=== PATIENT | female | born 1950 | race Caucasian/White ===

== ENCOUNTER 2023-07-10 14:26 | Outpatient (OUT) | payer MEDICARE, OTHER, SELFPAY ==
--- NOTE | 2023-07-10 | CONS_ITS ---
PROCEDURE DATE: ??07/10/2023 PROCEDURE:? Right sided T7 and T8 intercostal injection. PREOPERATIVE DIAGNOSIS:? Pain secondary to intercostal neuritis and myofascial dysfunction. SOLUTION USED FOR INJECTION:? 2 mL of 2% lidocaine, 2 mL of 0.25% Marcaine and Kenalog total of 10 mg, total of 5 mL and 1 mL was used for injection at each site. IMMEDIATE COMPLICATIONS:? None. PROCEDURE:? After informed consent was obtained from the patient, placed in the prone position.? Skin overlying the area was prepped with alcohol.? 25 gauge 1 ?? needle was inserted over the areas of the right T7 rib, approximately 3 cm from the midline.? Needle tip advanced until rib was encountered, at which point the needle was brought inferiorly, depositing 1 mL of solution.? The same procedure was repeated at the right T8 level.? Post-op needle was removed.? Patient reports a dramatic reduction in pain symptoms post procedurally.? No indication of intravascular or intraneural needle tip placement.? No evidence of post procedure pneumothorax. MTDD
== END 2023-07-10 14:27 | disposition home or self-care (01) ==
LOC: PM 14:26
PROVIDERS: PCP Internal Medicine; Visit Provider Anesthesiology Pain Medicine
DX: G58.8 Other specified mononeuropathies (principal); M79.10 Myalgia, unspecified site
CPT/HCPCS: 64420

== ENCOUNTER 2023-10-11 14:14 | Outpatient (OUT) | payer MEDICARE, OTHER, SELFPAY ==
--- NOTE | 2023-10-11 | CONS_ITS ---
CONSULTATION DATE: 10/11/2023 TO: Dr. Wheeler. HISTORY: Patient was seen today complaining of 1-5/10 pain in her shoulders bilaterally, more on the right side, described as a deep, aching pain with an occasional electrical sensation, which increases with activities such as standing, walking, performing lifting maneuvers, pushing/pulling maneuvers. Denies any change in bowel and bladder habits or new sensorimotor changes in the upper or lower extremities. EXAMINATION: Notable for patient having no clinical signs consistent with neuritis involving the right T7 and T8 intercostal nerves. She has no appreciable dysesthesia or hyperesthesia over this distribution. Patient does have a moderate amount of myofascial spasm involving the trapezius on the right side. IMPRESSION: Our impression is patient has pain from her intercostal neuritis at T7 and T8, appears to be stable. RECOMMENDATIONS: I recommend no further intervention for her original pain from myofascial spasm, and to return to our office on an as needed basis. As part of providing excellent, safe, comprehensive care, the following was completed at our patient's visit: 1. A medication reconciliation and review to ensure accurate knowledge of current/active medications, including asking our patients to inform us about any [id number] medications or herbal remedies/nutritional supplements/alternative remedies. 2. A review to specifically ensure our patients have had annual screening for: elevated body mass index (BMI, see intake chart for exact total), tobacco use, screening for depression, and screening for unhealthy alcohol use. When screening is concerning, patients are provided with education and the specific recommendation to discuss the concerning health issue and treatment options with their primary care provider. SOLO
== END 2023-10-11 14:15 | disposition home or self-care (01) ==
PROVIDERS: PCP Internal Medicine; Visit Provider Anesthesiology Pain Medicine
DX: G58.8 Other specified mononeuropathies (principal)
CPT/HCPCS: G0463

== ENCOUNTER 2023-10-26 09:24 | Outpatient (OUT) | payer MEDICARE, OTHER, SELFPAY ==
--- NOTE | 2023-10-26 09:09 | XR_ITS ---
The [address] [address] Patient Name: QUENTIN DEJESUS MRN: [id number] date: 1950 Sex: F Assigned Patient Location: LAB Current Patient Location: [facility] Accession/Order Number: [id number] Exam Date: 10/26/2023 11:00 Report Date: 10/26/2023 12:40 At the request of: KARMEN CHANEY Procedure: XR chest 2V EXAM: XR chest 2V HISTORY: Subacute Cough R05.2 COMPARISON: None. TECHNIQUE: PA and lateral views of the chest. FINDINGS: The cardiomediastinal silhouette is normal. No focal consolidation is identified. There is no pneumothorax. No pleural effusion is noted. The osseous structures are intact. XR/XR chest 2V IMPRESSION: No acute cardiopulmonary process. Electronically authenticated by: FELI GONZALES Date: 10/26/2023 12:40
== END 2023-10-26 09:25 | disposition home or self-care (01) ==
LOC: RAD 11-19 09:26
PROVIDERS: PCP Internal Medicine; Visit Provider Internal Medicine
DX: R05.2 Subacute cough (principal)
CPT/HCPCS: 71046

== ENCOUNTER 2024-01-07 10:00 | Outpatient (OUT) | payer MEDICARE, OTHER, SELFPAY ==
--- NOTE | 2024-01-07 10:03 | MM_ITS ---
Patient Name: QUENTIN DEJESUS MR#: [id number] : 1950 Exam Date: 01/07/2024 Ordering Doctor: DR Kamaljit Wheeler D.O. RADIOLOGY REPORT PROCEDURE: MM TOMOSYNTHESIS SCREENING BI COMPARISON: MG MAMM SCREEN 3D JULITA CAD, 12/21/2022. MG MAMM SCREEN 3D JULITA CAD, 09/16/2021. INDICATIONS: screening Calculator Name NCI Breast Cancer Risk Assessment Tool 5 Year Breast Cancer Risk 2.00% Lifetime Breast Cancer Risk 4.20% Personal Breast Cancer No Personal Ovarian Cancer No Treatments None Family Cancers Grandmother-paternal with lung cancer at age ~80. LOCATION: [facility] BREAST COMPOSITION: Extremely dense, which lowers the sensitivity of mammography. FINDINGS: DIAGNOSTIC CATEGORY 2--BENIGN FINDING. NO CHANGE FROM COMPARISON. Scattered benign-appearing calcifications are present. Scattered benign-appearing lymph nodes are present. RIGHT BREAST: No significant suspicious finding. LEFT BREAST: No significant suspicious finding. RECOMMENDATIONS: ROUTINE MAMMOGRAM AND CLINICAL EVALUATION IN 12 MONTHS. PLEASE NOTE: A NORMAL MAMMOGRAM DOES NOT EXCLUDE THE POSSIBILITY OF BREAST CANCER. A CLINICALLY SUSPICIOUS PALPABLE LUMP SHOULD BE BIOPSIED. Dictated by: Delon Holly MD on 01/07/2024 at 12:45 Approved by: Delon Holly MD on 01/07/2024 at 12:46
--- NOTE | 2024-01-07 10:03 | XR_ITS ---
[address] [address] Patient Name: QUENTIN DEJESUS MRN: [id number] date: 1950 Sex: F Assigned Patient Location: [facility] Current Patient Location: [facility] Accession/Order Number: [id number] Exam Date: 01/07/2024 10:35 Report Date: 01/07/2024 13:28 At the request of: KARMEN CHANEY Procedure: XR DEXA axial skeleton EXAMINATION: XR DEXA axial skeleton, 01/07/2024 10:35 AM EDT HISTORY: menopause Z78.0 COMPARISON: 2020, 2018, 2016 TECHNIQUE: Dual-energy X-ray absorptiometry (DEXA) bone density study performed for the axial skeleton. HISTORY: menopause Z78.0 FINDINGS: Bone mineral density AP spine L1-L4 measures 1.165 g/sq cm. T score -0.1. This is artifactually elevated secondary to proliferative spondylosis. Lowest bone mineral density right femoral trochanter measuring 0.56 g/sq cm. T score -2.2. WHO classification: Osteopenia. XR/XR DEXA axial skeleton IMPRESSION: Osteopenia. Moderate fracture risk Electronically authenticated by: MARNI EMERY Date: 01/07/2024 13:28
--- OUTSIDE RECORDS SUMMARY | 2024-01-07 10:06 | XMS_ITS | CCD ---
Author Name Unknown Address [address] [place] [address] Organization [facility] Care Team Providers Care [employer] Operations Coordinator Name Role Phone BLUM ., DR ARUN An Consulting Unavailable BLUM ., DR AURN An Admitting Unavailable BLUM ., DR ARUN An Attending Unavailable LIAM, DR PERAZA Primary Care Unavailable LIAM, DR PERAZA Primary Care Unavailable LAKSHMIPATHY ., NARENDNATALIAATH Admitting Jesenia vailable LAKSHMIPATHY ., NARENDNATALIAATH Attending Jesenia vailable LAKSHMIPATHY ., NARENDNATALIAATH Consulting Jesenia vailable LAKSHMIPATHY ., NARENDRANATH Admitting Jesenia vailable BALL, DR PERAZA Primary Care Unavailable LAKSHMIPATHY ., NARLOBO Attending Jesenia vailable LAKSHMIPATHY ., NARLOBO Consulting Jesenia vailable BLUM ., DR ARUN An Attending Unavailable VIDALES ., HILARY Consulting Unavailable BLUM ., DR ARUN An Admitting Unavailable LIAM, DR PERAZA Primary Care Unavailable BLUM ., DR ARUN An Admitting Unavailable BLUM ., DR ARUN An Attending Unavailable LIAM, DR PERAZA Primary Care Unavailable VIDALES ., HILARY Consulting Unavailable VIDALES ., HILARY Consulting Unavailable BLUM ., DR ARUN An Attending Unavailable BLUM ., DR ARUN An Admitting Unavailable LIAM, DR PERAZA Primary Care Unavailable LIAM, DR PERAZA Consulting Unavailable LIAM, DR PERAZA Primary Care Unavailable LIAM, DR PERAZA Admitting Unavailable LIAM, DR PERAZA Attending Unavailable RUPERT, DR MARNI Gomez Consulting Unavailable Liam Kamaljit Unavailable Allergies Allergy Classification Reported Allergen(s) Allergy Type Date of Onset Reaction(s) Facility (1 source) zonisamide Drug Allergy 3 [facility] Repository (5 sources) Diclofenac Drug Allergy Unknown [facility] Other (3 sources) patient allergy list reviewed by nurse or physicia Propensity to adverse reactions 9 Comment:Done [facility] Other (3 sources) Allergies Reconciled Propensity to adverse reactions Unknown [facility] Other Medications Current Medications Medication Drug Class(es) Dates Sig (Normalized) Sig (Original) escitalopram 20 mg oral tablet (5 sources) Serotonin Reuptake Inhibitor take 1 tablet by mouth once daily at bedtime Escitalopram Oxalate 20 MG take 1 tablet by mouth every evening at bedtime for 90 Active hydroCHLOROthiazide 25 mg oral tablet (5 sources) Thiazide Diuretic take 1 tablet by mouth every twenty-four hours hydroCHLOROthiazide 25 MG 1 tablet in the morning Orally Once a day for 90 days Active zolpidem tartrate 10 mg oral tablet (5 sources) gamma-Aminobu tyric Acid-ergic Agonist Start: 3 take 1 tablet by mouth once at bedtime as needed Zolpidem Tartrate 10 MG 1 tablet at bedtime as needed Orally q HS as needed for 30 days Apr, Active Problems Active Problems Problem Classification Problem Date Documented Date Episodic/Chronic Anxiety disorders (9 sources) Generalized anxiety disorder; Translations: [Generalized anxiety disorder] Chronic Essential hypertension (4 sources) Benign essential hypertension; Translations: [Essential hypertension, benign] Onset: 02-10-2015 Chronic Immunizations and screening for infectious disease (4 sources) Encounter for immunization; Translations: [Vaccination given] Episodic Menopausal disorders (4 sources) Primary ovarian failure; Translations: [Other primary ovarian failure] Onset: 02-22-2019 Chronic Miscellaneous mental health disorders (7 sources) Primary insomnia; Translations: [Primary insomnia] Onset: 02-10-2015 Chronic Mood disorders (4 sources) Dysthymic disorder; Translations: [Dysthymia] Onset: 02-07-2017 Chronic Other circulatory disease (1 source) Elevated blood-pressure reading, without diagnosis of hypertension Episodic Other diseases of veins and lymphatics (8 sources) Peripheral venous insufficiency; Translations: [Venous insufficiency (chronic) (peripheral)] Episodic Other diseases of veins and lymphatics (1 source) Venous insufficiency (chronic) (peripheral); Translations: [Venous insufficiency (chronic) (peripheral)] Episodic Other injuries and conditions due to external causes (4 sources) History of fall; Translations: [History of falling] Episodic Other nervous system disorders (4 sources) Other specified mononeuropathies; Translations: [OTHER SPECIFIED MONONEUROPATHIES] Onset: 02-22-2023 Chronic Other nutritional; endocrine; and metabolic disorders (4 sources) Hypercalcemia; Translations: [Hypercalcemia] Onset: 05-18-2018 Chronic Other upper respiratory disease (9 sources) Allergic rhinitis due to pollen; Translations: [Allergic rhinitis due to pollen] Chronic Other upper respiratory disease (4 sources) Allergic rhinitis; Translations: [Allergic rhinitis, unspecified] Chronic Other upper respiratory disease (1 source) Other seasonal allergic rhinitis; Translations: [Other seasonal allergic rhinitis] Onset: 02-10-2015 Chronic Other upper respiratory disease (3 sources) Seasonal allergic rhinitis; Translations: [Other seasonal allergic rhinitis] Onset: 02-10-2015 Chronic Other upper respiratory disease (1 source) Vasomotor rhinitis; Translations: [Vasomotor rhinitis] Chronic Other upper respiratory disease (1 source) Vasomotor rhinitis Chronic Residual codes; unclassified (18 sources) Obstructive sleep apnea syndrome; Translations: [Obstructive sleep apnea (adult) (pediatric)] Onset: 02-19-2019 Chronic Residual codes; unclassified (1 source) Obstructive sleep apnea (adult) (pediatric) Chronic Residual codes; unclassified (1 source) Family history of malignant neoplasm of trachea, bronchus and lung; Translations: [FAM HX MALIG NEOPLSM TRACH BRON LNG] Onset: 12-25-2022 Episodic Residual codes; unclassified (2 sources) Asymptomatic menopausal state; Translations: [Asymptomatic menopausal state] Episodic Residual codes; unclassified (1 source) Tobacco use; Translations: [Tobacco use] Episodic Residual codes; unclassified (3 sources) Tobacco user; Translations: [Tobacco use] Episodic Residual codes; unclassified (3 sources) Postmenopausal state; Translations: [Asymptomatic menopausal state] Episodic Screening and history of mental health and substance abuse codes (1 source) Encounter for screening for depression; Translations: [Encounter for screening for depression] Episodic Spondylosis; intervertebral disc disorders; other back problems (11 sources) Spondylosis without myelopathy or radiculopathy, thoracic region; Translations: [Other intervertebral disc degeneration, thoracic region] Onset: 07-18-2022 Chronic Unclassified (1 source) Other screening mammogram; Translations: [Other screening mammogram] Onset: 02-10-2015 Unclassified (1 source) Need for prophylactic vaccination against Streptococcus pneumoniae (pneumococcus); Translations: [Need for prophylactic vaccination against Streptococcus pneumoniae (pneumococcus)] Onset: 08-25-2016 Viral infection (4 sources) COVID-19; Translations: [Disease caused by 2019-nCoV] Past or Other Problems Problem Classification Problem Date Documented Da te Episodic/Chronic Malaise and fatigue (4 sources) Malaise and fatigue; Translations: [Other malaise and fatigue] Onset: 07-31-2016 Episodic Other bone disease and musculoskeletal deformities (1 source) Other specified disorders of bone density and structure, unspecified site; Translations: [Oth disrd of bone density and structure, unspecified site] Onset: 01-15-2018 Episodic Other bone disease and musculoskeletal deformities (3 sources) Bone density finding; Translations: [Other specified disorders of bone density and structure, unspecified site] Onset: 01-15-2018 Episodic Other connective tissue disease (5 sources) Other muscle spasm; Translations: [OTHER MUSCLE SPASM] Onset: 07-18-2022 Episodic Other connective tissue disease (4 sources) Fibromyalgia; Translations: [Fibromyalgia] Onset: 01-15-2018 Episodic Other screening for suspected conditions (not mental disorders or infectious disease) (10 sources) Encounter for screening mammogram for malignant neoplasm of breast; Translations: [Encounter for screening for malignant neoplasm of colon] Onset: 04-22-2017 Resolved: 07-09-2020 Episodic Residual codes; unclassified (4 sources) Requires influenza virus vaccination; Translations: [Need for prophylactic vaccination and inoculation, Influenza] Onset: 08-01-2017 Episodic Residual codes; unclassified (4 sources) Insomnia; Translations: [Insomnia, unspecified] Onset: 02-10-2015 Episodic Residual codes; unclassified (3 sources) Sleep disorder; Translations: [Persistent disorder of initiating or maintaining sleep] Onset: 02-10-2015 Episodic Spondylosis; intervertebral disc disorders; other back problems (13 sources) Muscle spasm of back; Translations: [Neck pain] Onset: 02-19-2019 Episodic Unclassified (1 source) Subacute cough R05.2 Results Test Name Value Interpretation Reference Range Facil ity MG MAMM SCREEN 3D JULITA CADon 12-21-2022 MG MAMM SCREEN 3D JULITA CAD Patient: QUENTIN DEJESUS Exam Date: 12/21/2022 : 1950 Gender:F Ordering : DR KAMALJIT CHANEY D.O. Admission #: [id number] Family : Order #: [id number] CLICK HERE TO VIEW EXAM RADIOLOGY REPORT PROCEDURE: MAMMOGRAM SCREENING 3D BILATERAL CAD COMPARISON: MG MAMM SCREEN JULITA W CAD, 07/30/2020. MG MAMM SCREEN 3D JULITA CAD, 09/16/2021. INDICATIONS: Screening mammography Calculator Name NCI Breast Cancer Risk Assessment Tool 5 Year Breast Cancer Risk 2.00% Lifetime Breast Cancer Risk 4.50% Personal Breast Cancer No Personal Ovarian Cancer No Treatments None Family Cancers Grandmother-paternal with lung cancer at age 80. LOCATION: [facility] BREAST COMPOSITION: Extremely dense, which lowers the sensitivity of mammography. FINDINGS: DIAGNOSTIC CATEGORY 2--BENIGN FINDING. NO CHANGE FROM COMPARISON. Scattered benign-appearing calcifications are present. Scattered benign-appearing lymph nodes are present. RIGHT BREAST: No significant suspicious finding. LEFT BREAST: No significant suspicious finding. RECOMMENDATIONS: ROUTINE MAMMOGRAM AND CLINICAL EVALUATION IN 12 MONTHS. PLEASE NOTE: A NORMAL MAMMOGRAM DOES NOT EXCLUDE THE POSSIBILITY OF BREAST CANCER. A CLINICALLY SUSPICIOUS PALPABLE LUMP SHOULD BE BIOPSIED. Dictated by: Marni Holly MD on 12/22/2022 at 12:33 Approved by: Marni Holly MD on 12/22/2022 at 12:36 Normal [facility] Vital Signs Date Time Vital Sign Value Performing Clinician Facility 10-25-2023 08:30-0500 Body height 167.64 cm Kamaljit Chaney Other [facility] Other 10-25-2023 08:30-0500 Body mass index (BMI) [Ratio] 22.56 kg/m2 Kamaljit [facility] Other [facility] Other 10-25-2023 08:30-0500 Body weight 63.41 kg Kamaljit [facility] Other [facility] Other 10-25-2023 08:30-0500 Diastolic blood pressure 80 mm[Hg] Kamaljit [facility] Other [facility] Other 10-25-2023 08:30-0500 Respiratory rate 12 /min Kamaljit Ball Other [facility] Other 10-25-2023 08:30-0500 Systolic blood pressure 149 mm[Hg] Kamaljit Ball Other [facility] Other 05-01-2023 09:30-0400 Body height 167.64 cm Kamaljit Ball Other [facility] Other 05-01-2023 09:30-0400 Body mass index (BMI) [Ratio] 22.53 kg/m2 Kamaljit Ball Other [facility] Other 05-01-2023 09:30-0400 Body weight 63.32 kg Kamaljit Ball Other [facility] Other 05-01-2023 09:30-0400 Diastolic blood pressure 72 mm[Hg] Kamaljit Ball Other [facility] Other 05-01-2023 09:30-0400 Respiratory rate 12 /min Kamaljit Ball Other [facility] Other 05-01-2023 09:30-0400 Systolic blood pressure 135 mm[Hg] Kamaljit Ball Other [facility] Other Encounters Encounter Date Encounter Type Care Provider Facility Start: 10-25-2023 End: 10-25-2023 ambulatory Kamaljit Ball Other [facility] Other Start: 10-25-2023 Office outpatient visit 15 minutes Kamaljit Chaney [facility] Start: 08-17-2023 End: 08-17-2023 ambulatory Kamaljit Ball Other [facility] Other Start: 08-17-2023 Telephone encounter Kamaljit [facility] Start: 07-20-2023 End: 07-20-2023 ambulatory Kamaljit Ball Other [facility] Other Start: 07-20-2023 Nursing evaluation o f patient and report Kamaljit Chaney [facility] Start: 05-18-2023 End: 05-18-2023 ambulatory Kamaljit Chaney Other [facility] Other Start: 05-18-2023 Telephone encounter Kamaljit Chaney [facility] Start: 05-01-2023 End: 05-01-2023 ambulatory Kamaljit Chaney Other [facility] Other Start: 05-01-2023 Patient encounter procedure Kamaljit Chaney [facility] Start: 02-22-2023 End: 02-23-[address] KAMALJIT CHANEY Facility:[facility] Start: 01-18-2023 End: 01-19-2023 ambulatory YOJANA SHIRLEY . Facility:[facility] Start: 12-21-2022 End: 12-22-[address] KAMALJIT CHANEY Facility:[facility] Start: 10-19-2022 End: [address] ARUN BLUM . Facility:[facility] Start: 07-13-2022 End: 07-14-2022 ambulatory HILARY VIDALES . Facility:[facility] Start: 05-31-2022 End: 06-01-[address] ARUN BLUM . Facility:[facility] Start: 03-09-2022 End: 03-10-[address] ARUN BLUM . Facility:[facility] Start: 07-08-2021 Adult health examination Kamaljit Chaney Other [facility] Other Procedures Date Procedure Procedure Detail Performing Clinician Start: 12-09-2018 Screening for malign ant neoplasm of colon Kamaljit Chaney Other Start: 02-10-2015 Screening mammography B encindy Chaney Other Depression screening Rosalino Chaney Other Screening for malign ant neoplasm of breast Kamaljit Chaney Other Immunizations Immunization Date Immunization Notes Care Provider Fa cilidonald 07-20-2023 influenza, high dose seasonal, preservative-free Kamaljit Chaney Other [facility] Other 05-14-2023 zoster vaccine recombinant Kamaljit Chaney Other [facility] Other 10-25-2022 COVID-19 Pfizer (bivalent) Kamaljit Chaney Other [facility] Other 07-12-2022 influenza virus vaccine, split virus (incl. purified surface antigen) Kamaljit Chaney Other [facility] Other 07-12-2022 influenza, high dose seasonal, preservative-free Kamaljit Chaney Other [facility] Other 02-06-2022 COVID-19 Pfizer Kamaljit Parnell l Other [facility] Other 07-20-2021 COVID-19 Vaccine Pfi zer - Documentation Purposes Only Kamaljit Chaney Other [facility] Other 07-08-2021 influenza virus vaccine, split virus (incl. purified surface antigen) Kamaljit Chaney Other [facility] Other 12-14-2020 COVID-19 Vaccine Pfi zer - Documentation Purposes Only Kamaljit Chaney Other [facility] Other 11-23-2020 COVID-19 Vaccine Pfi zer - Documentation Purposes Only Kamaljit Chaney Other [facility] Other 07-09-2020 influenza virus vaccine, split virus (incl. purified surface antigen) Kamaljit Chaney Other [facility] Other 08-05-2019 influenza virus vaccine, split virus (incl. purified surface antigen) Kamaljit Chaney Other [facility] Other 08-06-2018 influenza virus vaccine, split virus (incl. purified surface antigen) Kamaljit Chaney Other [facility] Other 08-01-2017 influenza virus vaccine, split virus (incl. purified surface antigen) Kamaljit Chaney Other [facility] Other 09-11-2016 influenza virus vaccine, split virus (incl. purified surface antigen) Kamaljit Chaney Other [facility] Other 08-25-2016 pneumococcal conjuga te vaccine, 13 valent Kamaljit Chaney Other [facility] Other 08-25-2016 pneumococcal Conjuga te, unspecified formulation; Translations: [Need for prophylactic vaccination against Streptococcus pneumoniae (pneumococcus)] Kamaljit Liam Other [facility] Other 08-19-2015 tetanus and diphther ia toxoids, adsorbed, preservative free, for adult use (5 Lf of tetanus toxoid and 2 Lf of diphtheria toxoid) Kamaljit Liam Other [facility] Other 02-19-2015 pneumococcal polysaccharide vaccine, 23 valent Kamaljit Chaney Other [facility] Other 07-30-2014 tetanus and diphther ia toxoids, adsorbed, preservative free, for adult use (5 Lf of tetanus toxoid and 2 Lf of diphtheria toxoid) Kamaljit Chaney Other [facility] Other 08-21-2013 tetanus and diphther ia toxoids, adsorbed, preservative free, for adult use (5 Lf of tetanus toxoid and 2 Lf of diphtheria toxoid) Kamaljit Chaney Other [facility] Other Payers Date Payer Category Payer Medicare [id number] 1961 Unknown [id number] 1950 Unknown [id number] 2.16.84 [id number] 1950 Unknown [id number] 2.16.84 [id number] 1950 Unknown [id number] 2.16.84 [id number] 1950 Unknown [id number] 2.16.84 [id number] 1950 Unknown [id number] 2.16.84 [id number] 1950 Unknown [id number] 2.16.84 [id number] 1950 Unknown [id number] 2.16.84 [id number] Social History Date Type Detail Facility Sex Assigned At [facility] Other Clinical Notes 03-09-2022 to 10-25-2023 Note Date & Type Note Facility 10-25-2023 Evaluation note Encounter Date Diagnosis Assessment Notes Oct, Elevated BP without diagnosis of hypertension (ICD-10 - R03.0) This patient is instructed to consume a healthy, low-fat, low-salt diet. They are also encouraged to continue exercise to achieve/mainta in a normal BMI. Patient is instructed on home BP measurements: - rest for 5 minutes w/o talking- positioned w/ feet on floor and arm supported- average best 2/3 readings w/ goal < 135/85 Oct, Vasomotor rhinitis (ICD-10 - J30.0) Intolerant to Flonase. Use saline rinses regularly Sudafed and expectorant daily Oct, Subacute cough (ICD-10 - R05.2) Instructed to use Robitussin or Mucinex for cough, saline or Flonase NS for congestion, Tylenol for pain and fever. Instructed on treatment of rhinitis and GERD. CXR [facility] Other 07-11-2023 Evaluation note* Encounter Date Diagnosis Assessment Notes Treatment Notes Treatment Clinical Notes Apr, Medicare annual wellness visit, subsequent (ICD-10 - Z00.00) Personalized health advice was given to the beneficiary including a written plan for screenings discussed and provided. Advanced care planning reviewed and/or information given as requested. Additional counseling was provided here today in regards to, [ ]. The above visit was performed by [ ], under direct supervision of [ ]. Document reviewed and amended by provider signed below. Apr, SHITAL (obstructive sleep apnea) (ICD-10 - G47.33) This patient is aware of the benefits associated with SHITAL: With continued use, the patient reduces the risk for RI, CVA, HTN, cardiac dysrhythmias and sudden cardiac deaths.The patient is also aware of the association between SHITAL and morning headaches, daytime somnolence, fatigue and obesity, which also has been improved with continued use.The patient is compliant with treatment, wearing the equipment every night for greater than 4 hours.The patient is instructed to continue use of the CPAP for SHITAL treatment. Not wearing recently due to dental surgery Apr, Primary insomnia (ICD-10 - F51.01) Instructed on proper sleep routine. Avoid phone, computer, TV and exercise prior to bedtime Use Zolpidem on occasion Apr, Menopause (ICD-10 - Z78.0) Healthy diet, exercise Ca and Vit D supplements. Apr, Screening mammogram for breast cancer (ICD-10 - Z12.31) Monthly SBE and yearly mammogram Apr, Screening for colon cancer (ICD-10 - Z12.11) Due for [facility], order sent [facility] Other 03-30-2023 NoteCONSULTATION PROCEDURE DATE: 01/18/2023 PROCEDURE: Right T7 and T8 intercostal nerve injection performed in the office. 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 SOLUTION USED FOR INJECTION: 2 mL of 2% lidocaine, 2 mL of 0.2% Marcaine, Kenalog 10 mg, a total of 5 mL and 0.5 to 1 mL used for injection at each site. IMMEDIATE COMPLICATIONS: None. PROCEDURE: After informed consent was obtained from the patient, placed in the left lateral decubitus position. Skin overlying the area was prepped with alcohol. A 25 gauge, 1.5 inch needle inserted over the rib on the right side at T7. The rib was encountered. The needle tip was walked off inferiorly, depositing 1 mL of solution. The same procedure was performed in a similar fashion at the T8 level. Throughout the procedure, there was no indication of intraneural or intravascular or intrapleural needle tip placement or injection. There was no evidence of post procedural pneumothorax noted on examination. She reports at least 80% reduction of pain symptoms during the immediate post procedural period.[facility] [id number] NoteCONSULTATION CONSULTATION DATE: 01/18/2023 TO: Kamaljit Chaney D.O. CHIEF COMPLAINT: Includes severe right sided rib pain, flank pain and chest pain. HISTORY: She describes the pain as being 5-7/10 pain, sharp in character, increased with activities such as deep breathing, coughing, sneezing is also uncomfortable. Touching the area is also quite painful, and she also describes a burning sensation in this area, which radiates to the anterior chest and anterior abdominal area. EXAM: Her examination is notable for patient having dysesthesia and hyperesthesia along the distribution of the right intercostal nerve at T7 and T8. RECOMMENDATIONS: I have recommended she start Zonegran 25 mg at h.s., proceed with a right T7 and T8 intercostal nerve injection. I have increased the baclofen to 10 mg pills, half a pill in the morning, half a pill in the afternoon and one pill at bedtime. I have gone over the details of the procedure with the patient. All of her questions were answered. She agrees to proceed with the outlined plan.[facility] [id number] NoteCONSULTATION CONSULTATION DATE: 10/19/2022 HISTORY OF PRESENT ILLNESS: This is a very pleasant, 71-year-old female returning to the clinic for a three month follow up for chronic right trapezius/scapular pain and spasms and right cervical spasms. She was last seen on 07/13/2022 which, at that time, she received cervical trapezius trigger point injection. The patient received moderate relief but was not long lasting. She finds relief mainly with Epsom salt soaks. Medications include baclofen 10 mg q.h.s., Lexapro, melatonin and Tylenol. Activities that aggravate her pain are sitting too long and twisting motion. She does use heat application which seems to lessen the spasms. She denies any vasomotor changes. Patient's REVIEW OF SYSTEMS / PAST MEDICAL HISTORY / ALLERGIES and IMAGES have been reviewed and noted in the chart. PHYSICAL EXAM: VITAL SIGNS: Blood pressure is 130/78. Heart rate is 70. Temperature is 96.9. She is 5'6 , weighs 63 kg. GENERAL APPEARANCE: Pleasant, appropriate, in no acute distress. FOCUSED EXAM - NECK: Range of motion is functional in lateral rotation and flexion/extension. It is guarded somewhat with right lateral rotation. No spinal axial pain upon compression along the cervical facets. Right cervical trapezius muscle is spasmodic and compression reproduces patient's pain symptomatology. BACK: Thoracic trapezius muscles to the right along T5 distribution, posterior right scapula are tender to palpation. Deep compression reproduces pain symptomatology and is spasmodic. Range of motion of the back is functional in lateral rotation and flexion/extension. MUSCULOSKELETAL: Bilateral upper and lower extremities motor of 4/5. Musculature is with good tone. NEUROLOGICAL: Radicular sensory is intact. Negative polyneuropathy. DIAGNOSIS: Cervical trapezius spasm to the right and right thoracic trapezius spasms. PLAN: Prescription was given for compounded Buderer cream with gabapentin. I did recommend her to get a professional massage with a therapist. She is to continue her other home modalities including heat and Epsom salt. We will see her in three months' time, unless otherwise indicated. Patient is in agreement. [facility] [id number] NoteCONSULTATION CONSULTATION DATE: 07/13/2022 HISTORY OF PRESENT ILLNESS: This is a very pleasant and active, 71-year-old female returning to the clinic for complaints of right neck trapezius pain. She was last seen in the clinic on 05/31/2022 which, at that time, she received trapezius thoracic trigger point injection which she reported was very helpful. She is very active and has increased the use of her right arm with certain activities. She feels that she has a possible muscle spasm that gives her tightness and electrical shooting pain from the posterior part of her right neck to her arm. It affects her driving and turning her head to the right. It decreases the range of motion of her arm because of the pain. Lifting, reaching, physical activity and lateral rotation aggravate her pain. Medications include Epsom salt baths, a menthol freeze spray, baclofen 10 mg q.h.s., Lexapro and a multivitamin regimen. Patient's REVIEW OF SYSTEMS / PAST MEDICAL HISTORY / ALLERGIES and IMAGES have been reviewed and they are noted on the chart. PHYSICAL EXAM: VITAL SIGNS: Blood pressure 155/89, heart rate is 71. Temperature is 97.1. She is 5'6 and weighs 63.6 kg. GENERAL IMPRESSION: Pleasant, appropriate, no acute distress. FOCUSED EXAM - NECK: Range of motion is slightly guarded in right lateral rotation. Flexion/extension is intact. Right cervical trapezius muscle with trigger point identified. Compression along that area reproduces the patient's pain symptomatology with positive jump response. MUSCULOSKELETAL: Motor is intact, 4/5 bilaterally to upper extremities. Good muscle tone. No vasomotor weakness noted. NEUROLOGICAL: Patient is cognitively intact. Negative polyneuropathy. +2 brachioradialis bilaterally. DIAGNOSIS: Right cervical trapezius spasm, thoracic spondylosis and thoracic degenerative disc. PLAN: Patient will receive a right cervical trigger point injection in the office today, which she does consent to. Patient has complaint of slight somnolence with the 10 mg dose of baclofen in the morning after taking it. She was instructed to break it in half or to divide it into separate administrations of 5 mg. Education is given on using Vicks VapoRub and heat application to the cervical trapezius site. We will see the patient in three months' time unless otherwise indicated.[facility] [id number] Note CONSULTATION PROCEDURE DATE: 07/13/2022 PREOPERATIVE DIAGNOSIS: Right cervical trapezius spasm. POSTOPERATIVE DIAGNOSIS: Right cervical trapezius spasm. PROCEDURE: Right cervical trapezius trigger point injection x1. Subsequent to obtaining informed consent, the patient was placed in an upright sitting neutral position. Alcohol prep was used to sterilize the site. 0.125% Marcaine with 40 mg of Kenalog in a 25 gauge needle, total volume of 3 mL was placed to rest inside the trigger point. Negative heme. Medication injected in a slow fan-like pattern. Patient tolerated procedure well and will be followed up in the office.[facility] [id number] NoteCONSULTATION CONSULTATION DATE: 05/31/2022 This is a very pleasant and active 71-year-old female returning to the clinic for increased right trapezius pain. She was last seen on 03/09/2022 and that was her follow-up appointment for her thoracic RFAs of T2, T3 and T4, T5. She continues to have 100% relief on the left but is feeling increased pain on the right. It is aggravated by reaching, vacuuming the house, lifting and ADLs. She has been using menthol heat rubs, Epsom salt baths, heat and stretches with no relief. When she raises her arm up or deeply massages her left scapular area, the pain decreases. Her medications include Baclofen 10 mg q.h.s., Lexapro 10 mg q. day, Osteo Bi-Flex and magnesium. She does use Aleve p.r.n. On her last appointment date, she received a right trigger point injection. He trapezius gave her 50%b relief. REVIEW OF SYSTEMS, PAST MEDICAL HISTORY, ALLERGIES AND IMAGES: Have been reviewed and noted in the chart. PHYSICAL EXAM: VITAL SIGNS: Blood pressure 146-80, heart rate is 86, temperature is 97.8. Height is 5'6 , weighs 64 kg. GENERAL APPEARANCE: Pleasant, appropriate, uncomfortable sitting in the chair. FOCUSED EXAM: NECK: Range of motion is functional, lateral rotation, flexion and extension. BACK: Range of motion is functional, lateral rotation, flexion and extension. THORACIC: No reproduction of spinoaxial pain. Upon compression of the thoracic facets at the levels of her ablation which were T2, T3 and T4, T5. Two trigger points were identified along her right trapezius, one subscapular and once just medial to her T3, vertebrae. Compression of these two areas reproduces the patient's symptomatology. MUSCULOSKELETAL: Motor is intact, upper and lower extremities, 4 out of 5. Slight muscle atrophy to bilateral lower extremities. NEUROLOGICAL: Radicular sensory is intact. Plus 2 bilateral brachioradialis reflexes. Negative polyneuropathy. DIAGNOSIS: Right trapezius spasm, spondylosis, thoracic spondylosis and thoracic degenerative disk. PLAN: The patient will receive right trapezius trigger point injections in two locations. I encouraged the patient to continue with her magnesium, heat rubs, stretches and I recommended a professional massage. The patient agrees with the plan of care and will be followed up in two months' time unless otherwise indicated.[facility] [id number] NoteCONSULTATION PROCEDURE NOTE: 05/31/2022 PRE AND POSTOPERATIVE DIAGNOSIS: Right trapezius spasms PROCEDURE: Right trapezius trigger point. Subsequent to obtaining informed consent, the patient was placed in the upright standing forward flexion position. Alcohol prep was used to sterilize the site. 25-gauge needle with 0.125% Marcaine and 40 mg of Kenalog was divided into two locations. The needle was placed to rest inside the trigger point, negative heme. Medication was injected in the fan-like position. The patient tolerated the procedure well with no overt complications. She will be followed up in the office.[facility] [id number] NoteThe [place], [place] NAME: QUETNIN DEJESUS DATE OF : MEDICAL REC#: [id number] WEB ANALYST: [address] [facility]: 03/09/2022 10:47:00 TRUER PINION AND WHEEL DATE: 03/10/2022 16:00 DICTATING PHYSICIAN: HILARY VIDALES DICTATION DATE: 03/09/2022 11:00 CONSULTATION CONSULTATION DATE: 03/09/2022 This is a very pleasant 71-year-old female returning to the clinic status post bilateral RFA with T2, T3 and T4 and T5 which was completed on 02/07/2022. The patient has received 100% relief to the left side and reporting 0 to the right. She is describing a tightness and a dull ache which she thinks is muscle related. She has been using Epsom salt bath as well as a menthol rub. Activities such as evening hours and sitting prolonged periods of time aggravate her pain. The use of heat, Voltaren gel and sleep decrease her pain. Current medications include Flexeril 10 mg q.h.s., Lexapro, Vitamin D and fish oil. The patient is reporting that the Flexeril is giving her a somewhat hangover type feeling which is unpleasant for her. The patient denies any new radicular pain or vasomotor changes. REVIEW OF SYSTEMS, PAST MEDICAL HISTORY, ALLERGIES AND IMAGES: Have been reviewed and noted in the chart. PHYSICAL EXAM: VITAL SIGNS: Blood pressure 153/80, heart rate is 68, temperature is 97.7. Height is 5'6 , weighs 63.3 kg. GENERAL APPEARANCE: Pleasant and appropriate, no acute distress. FOCUSED EXAM: BACK: Reproduction of the patient's pain symptomatology to compression to right thoracic trapezius with the trigger point identified in two separate areas along T4 and T5. No spinoaxial pain to facet compression. MUSCULOSKELETAL: Motor is intact to upper extremities bilaterally. NEUROLOGICAL: Negative polyneuropathy, no radicular pain. DIAGNOSIS: Thoracic trapezius spasm, thoracic spondylosis, thoracic degenerative disk disease. PLAN: The patient will receive two right-sided trapezius trigger point injections in the office, which she consents to. We will change her muscle relaxer to Backofen 10 mg q.h.s. The patient is to continue with her exercises, stretches, heat rub and vitamin regimen. We will see the patient in three months' time unless otherwise indicated. Electronically Authenticated and Edited by: Hilary Vidales CNP on 03/13/2022 02:59 PM EDT IF Signed and Approved by: HILARY VIDALES . 03/13/2022 14:59:00[facility]05-19-2022 NoteCONSULTATION CONSULTATION DATE: 03/09/2022 PREOPERATIVE DIAGNOSIS: Bilateral thoracic trapezius spasms. POSTOPERATIVE DIAGNOSIS: Bilateral thoracic trapezius spasms. PROCEDURE: Right thoracic trigger point injection. Subsequent to obtaining informed consent, the patient was placed in the upright standing and forward flexion position. Alcohol prep was used to sterilize the site. A 25 gauge needle with 0.125% Marcaine and 40 mg of Kenalog was used to inject into two separate sites on the right. Needle was placed to rest inside the trigger points. Negative heme. Medication was injected in a fan-like pattern. Patient tolerated the procedure well and without any overt complications. Patient will be followed up in the clinic. IFC Signed and Approved by: HILARY VIDALES . 03/23/2022 16:01:00[facility] noteNo InformationNort [place] Other History general Narrative - Reported* Type Description Date Medical History Obstructive sleep apnea Medical History Primary insomnia Medical History ZULEYKA (generalized anxiety disorde r) Medical History Cervical spondylosis with radicu lopathy Medical History Chronic venous insufficiency Medical History Seasonal allergic rhinitis due t o pollen Surgical History gum regrafting 03/2023 Hospitalization History see surgical history [place] [facility] Other Summary Purpose Family History No Family History Records Found Advance Directives No Advanced Directives Records Found Additional Source Comments INFORMATION SOURCE (unrecogn ized section and content) DATE CREATED AUTHOR 03/01/2023 The Felisa maldonado REASON FOR VISIT (unrecogniz ed section and content) WellnessCologuard resultsflu shotRefillcough FOR RECORDS PERTAINING TO PATIENTS WHO ARE OR HAVE BEEN ENROLLED IN A CHEMICAL DEPENDENCY/SUBSTANCEABUSE PROGRAM, SOME INFORMATION MAY BE OMITTED. This clinical summary was aggregated from multiple sources. Caution should be exercised in using it in the provision of clinical care. This summary normalizes information from multiple sources, and as a consequence, information in this document may materially change the coding, format and clinical context of patient data. In addition, data may be omitted in some cases. CLINICAL DECISIONS SHOULD BE BASED ON THE PRIMARY CLINICAL RECORDS. [employer] provides no warranty or guarantee of the accuracy or completeness of information in this document.
== END 2024-01-07 10:01 | disposition home or self-care (01) ==
LOC: MAMMO 10:00
PROVIDERS: PCP Internal Medicine; Visit Provider Internal Medicine
DX: Z12.31 Encounter for screening mammogram for malignant neoplasm of breast (principal); Z78.0 Asymptomatic menopausal state; Z80.1 Family history of malignant neoplasm of trachea, bronchus and lung; M85.80 Other specified disorders of bone density and structure, unspecified site
CPT/HCPCS: 77063; 77067; 77080

== ENCOUNTER 2024-02-19 13:12 | Outpatient (OUT) | payer MEDICARE, OTHER, SELFPAY ==
--- NOTE | 2024-02-19 | CONS_ITS ---
PROCEDURE DATE: 02/19/2024 OUTPATIENT PROCEDURE NOTE PERFORMED IN THE CLINIC PREOPERATIVE DIAGNOSIS: Pain secondary to intercostal neuritis on the right side at T7 and T8, as the patient has dysesthesia and hypoesthesia along the right T7 and T8 dermatome. Patient also had significant myofascial dysfunction of intercostal muscles at T7-8, more so than T8-9. POSTOPERATIVE DIAGNOSIS: Pain secondary to intercostal neuritis on the right side at T7 and T8, as the patient has dysesthesia and hypoesthesia along the right T7 and T8 dermatome. Patient also had significant myofascial dysfunction of intercostal muscles at T7-8, more so than T8-9. PROCEDURE: < > SOLUTION USED FOR INJECTION: 2 mL of 2% lidocaine, 2 mL of 0.25% Marcaine and 10 mg Kenalog, a total of 5 mL, and 0.5 mL used for the injection at each side. IMMEDIATE COMPLICATION: None. PROCEDURE: After informed consent was obtained, the patient placed in the left lateral decubitus position. Skin overlying the area was prepped with alcohol. 25 gauge, 1?? needle inserted over the right T7 rib, approximately 3 cm from midline. Needle tip advanced until the rib was encountered. Needle tip was walked off inferiorly and deployed 0.5 mL of solution at the sight. Procedure performed in a similar fashion at the right T8 level. Post procedure, needle was removed. Patient reports a dramatic reduction in pain symptoms. No indication of post procedural pneumothorax was noted. SOLO
--- OUTSIDE RECORDS SUMMARY | 2024-02-19 13:28 | XMS_ITS | CCD ---
Author Organization [facility] Care Team Providers Care Glass Deposition Tender Name Role Phone BLUM ., DR ARUN An Consulting Unavailable BLUM ., DR ARUN An Admitting Unavailable BLUM ., DR ARUN An Attending Unavailable BALL, DR PERAZA Primary Care Unavailable BALL, DR PERAZA Primary Care Unavailable LAKSHMIPATHY ., NARENDNATALIAATH Admitting Jesenia vailable LAKSHMIPATHY ., NARENDNATALIAATH Attending Jesenia vailable LAKSHMIPATHY ., NARENDRANATH Consulting Jesenia vailable LAKSHMIPATHY ., NARLOBO Admitting Jesenia vailable BALL, DR PERAZA Primary Care Unavailable LAKSHMIPATHY ., NARENDNATALIAATH Attending Jesenia vailable LAKSHMIPATHY ., NARREXATH Consulting Jesenia vailable BLUM ., DR ARUN An Attending Unavailable VIDALES ., HILARY Consulting Unavailable BLUM ., DR ARUN An Admitting Unavailable BALL, DR PERAZA Primary Care Unavailable BLUM ., DR ARUN An Admitting Unavailable BLUM ., DR ARUN An Attending Unavailable BALL, DR PERAZA Primary Care Unavailable VIDALES ., HILARY Consulting Unavailable VIDALES ., HILARY Consulting Unavailable BLUM ., DR ARUN An Attending Unavailable BLUM ., DR ARUN An Admitting Unavailable BALL, DR PERAZA Primary Care Unavailable BALL, DR PERAZA Consulting Unavailable LIAM, DR PERAZA Primary Care Unavailable BALL, DR PERAZA Admitting Unavailable BALL, DR PERAZA Attending Unavailable WEST, DR MARNI Gomez Consulting Unavailable Liam, Kamaljit Unavailable Allergies Allergy Classification Reported Allergen(s) Allergy Type Date of Onset Reaction(s) Facility (1 source) zonisamide Drug Allergy [address] [facility] Repository (5 sources) Diclofenac Drug Allergy Unknown [facility] Other (3 sources) patient allergy list reviewed by nurse or physicia Propensity to adverse reactions 9 Comment:Done [facility] Other (3 sources) Allergies Reconciled Propensity to adverse reactions Unknown [facility] [employer] Other Medications Current Medications Medication Drug Class(es) [...] : DR KAMALJIT CHANEY D.O. Admission #: [id number] Family : Order #: [id number] CLICK HERE TO VIEW EXAM RADIOLOGY REPORT [...] with lung cancer at age 78. LOCATION: [facility] BREAST COMPOSITION: Extremely dense, which lowers the [...] MD on 12/22/2022 at 12:[address] [facility] Vital Signs Date Time Vital Sign Value Performing Clinician Facility 10-25-2023 08:30-0500 Body height 167.64 cm Kamaljit Chaney [facility] 10-25-2023 08:30-0500 Body mass index (BMI) [Ratio] 22.56 kg/m2 Kamaljit Chaney Other [facility] 10-25-2023 08:30-0500 Body weight 63.41 kg Kamaljit Chaney Other [facility] Other 10-25-2023 08:30-0500 Diastolic blood pressure 80 mm[Hg] Kamaljit Chaney Other [facility] Other 10-25-2023 08:30-0500 Respiratory rate 12 /min Kamaljit Chaney [facility] Other 10-25-2023 08:30-0500 Systolic blood pressure 149 mm[Hg] Kamaljit Ball Other [facility] Other 05-01-2023 09:30-0400 Body height 167.64 cm Kamaljit Ball Other [facility] 05-01-2023 09:30-0400 Body mass index (BMI) [Ratio] 22.53 kg/m2 Kamaljit Ball Other [facility] 05-01-2023 09:30-0400 Body weight 63.32 kg Kamaljit Ball Other [facility] 05-01-2023 09:30-0400 Diastolic blood pressure 72 mm[Hg] Kamaljit Ball Other [facility] Other 05-01-2023 09:30-0400 Respiratory rate 12 /min Kamaljit Ball Other [facility] 05-01-2023 09:30-0400 Systolic blood pressure 135 mm[Hg] Kamaljit Ball Other [facility] Other Encounters Encounter Date Encounter Type Care Provider Facility Start: 10-25-2023 End: 10-25-2023 ambulatory Kamaljit Chaney [facility] Start: 10-25-2023 Office outpatient visit 15 minutes Kamaljit Chaney [facility] Start: 08-17-2023 End: 08-17-2023 ambulatory Kamaljit Ball [facility] Start: 08-17-2023 Telephone encounter Kamaljit Chaney [facility] Start: 07-20-2023 End: 07-20-2023 ambulatory Kamaljit Ball [facility] Start: 07-20-2023 Nursing evaluation o f patient and report Kamaljit Chaney [facility] Start: 05-18-2023 End: 05-18-2023 ambulatory Kamaljit Chaney [facility] Start: 05-18-2023 Telephone encounter Kamaljit Chaney [facility] Start: 05-01-2023 End: 05-01-2023 ambulatory Kamaljit Chaney [facility] Start: 05-01-2023 Patient encounter procedure Kamaljit Chaney [facility] Start: 02-22-2023 End: 02-23-[address] [...] 07-08-2021 Adult health examination Kamaljit Chaney [facility] Other Procedures Date Procedure Procedure Detail Performing Clinician Start: 12-09-2018 Screening for malign ant neoplasm of colon Kamaljit Chaney Other Start: 02-10-2015 Screening mammography B enjamin Liam Other Depression screening Rosalino Chaney Other Screening for malign ant neoplasm of breast Kamaljit Chaney Other Immunizations Immunization Date Immunization Notes Care Provider Fa cility 07-20-2023 influenza, high dose seasonal, preservative-free Kamaljit Chaney [facility] 05-14-2023 zoster vaccine recombinant Kamaljit Chaney [facility] 10-25-2022 COVID-19 Pfizer (bivalent) Kamaljit Chaney [facility] Other 07-12-2022 influenza virus vaccine, split virus (incl. purified surface antigen) Kamaljit Chaney [facility] Other 07-12-2022 influenza, high dose seasonal, preservative-free Kamaljit Chaney [facility] 02-06-2022 COVID-19 Pfizer Kamaljit Parnell mattie Other [facility] Other 07-20-2021 COVID-19 Vaccine Pfi zer - Documentation Purposes Only Kamaljit Chaney Other [facility] Other 07-08-2021 influenza virus vaccine, split virus (incl. purified surface antigen) Kamaljit Chaney [facility] Other 12-14-2020 COVID-19 Vaccine Pfi zer - Documentation Purposes Only Kamaljit Chaney Other [facility] 11-23-2020 COVID-19 Vaccine Pfi zer - Documentation Purposes Only Kamaljit Chaney [facility] Other 07-09-2020 influenza virus vaccine, split virus (incl. purified surface antigen) Kamajlit Chaney Other [facility] Other 08-05-2019 influenza virus vaccine, split virus (incl. purified surface antigen) Kamaljit Chaney Other [facility] Other 08-06-2018 influenza virus vaccine, split virus (incl. purified surface antigen) Kamaljit Chaney Other [facility] Other 08-01-2017 influenza virus vaccine, split virus (incl. purified surface antigen) Kamaljit Chaney Other [facility] 09-11-2016 influenza virus vaccine, split virus (incl. purified surface antigen) Kamaljit Chaney Other [facility] 08-25-2016 pneumococcal conjuga te vaccine, 13 valent Kamaljit Chaney Other [facility] 08-25-2016 pneumococcal Conjuga te, unspecified formulation; Translations: [Need for prophylactic vaccination against Streptococcus pneumoniae (pneumococcus)] Kamaljit Liam Other [facility] Other 08-19-2015 tetanus and diphther ia toxoids, adsorbed, preservative free, for adult use (5 Lf of tetanus toxoid and 2 Lf of diphtheria toxoid) Kamaljit Chaney Other [facility] 02-19-2015 pneumococcal polysaccharide vaccine, 23 valent Kamaljit Chaney Other [facility] 07-30-2014 tetanus and diphther ia toxoids, adsorbed, preservative free, for adult use (5 Lf of tetanus toxoid and 2 Lf of diphtheria toxoid) Kamaljit Chaney Other [facility] 08-21-2013 tetanus and diphther ia toxoids, adsorbed, preservative free, for adult use (5 Lf of tetanus toxoid and 2 Lf of diphtheria toxoid) Kamaljit Chaney Other [facility] Other Payers Date Payer Category Payer Medicare [id number] 1961 Unknown [id number] 1950 Unknown [id number] 2.16.84 [id number] 1950 Unknown [id number] 2.16.84 [id number] 1950 Unknown [id number] 2.16.84 [id number] 1948 Unknown [id number] 2.16.84 [id number] 1948 Unknown [id number] 2.16.84 [id number] 1948 Unknown [id number] 2.16.84 [id number] 1948 Unknown [id number] 2.16.84 [id number] Social History Date Type Detail Facility Sex Assigned At [facility] Clinical Notes 03-09-2022 to 10-25-2023 Note [...] on treatment of rhinitis and GERD. CXR [facility] Other 07-11-2023 Evaluation note* Encounter Date Diagnosis [...] use, the patient reduces the risk for KS, CVA, HTN, cardiac dysrhythmias and sudden cardiac [...] colon cancer (ICD-10 - Z12.11) Due for Cologuard, order sent [facility] Other 03-30-2023 NoteCONSULTATION PROCEDURE DATE: 01/18/2023 PROCEDURE: [...] symptoms during the immediate post procedural period.[facility] [id number] NoteCONSULTATION CONSULTATION DATE: 01/18/2023 TO: Kamaljit Chaney [...] agrees to proceed with the outlined plan.[facility] [id number] NoteCONSULTATION CONSULTATION DATE: 10/19/2022 HISTORY OF PRESENT [...] otherwise indicated. Patient is in agreement. [facility] [id number] NoteCONSULTATION CONSULTATION DATE: 07/13/2022 HISTORY OF PRESENT [...] in three months' time unless otherwise indicated.[facility] [id number] Note CONSULTATION PROCEDURE DATE: 07/13/2022 PREOPERATIVE DIAGNOSIS: [...] will be followed up in the office.[facility] [id number] NoteCONSULTATION CONSULTATION DATE: 05/31/2022 This is a [...] in two months' time unless otherwise indicated.[facility] [id number] NoteCONSULTATION PROCEDURE NOTE: 05/31/2022 PRE AND POSTOPERATIVE [...] will be followed up in the office.[facility] [id number] NoteThe [place], [place] NAME: QUENTIN DEJESUS DATE OF : MEDICAL REC#: [id number] DEICER REPAIRER PNEUMATIC: [address] [facility] DATE: 03/09/2022 10:47:00 HYDROELECTRIC STATION OPERATOR CHIEF DATE: 03/10/2022 16:00 DICTATING PHYSICIAN: HILARY VIDALES [...] Vidales CNP on 03/13/2022 02:59 PM EDT IFC Signed and Approved by: HILARY VIDALES . 03/13/2022 14:59:00[facility]05-19-2022 NoteCONSULTATION CONSULTATION DATE: 03/09/2022 PREOPERATIVE DIAGNOSIS: Bilateral [...] will be followed up in the clinic. IF Signed and Approved by: HILARY VIDALES . 03/23/2022 16:01[facility]00[facility] noteNo InformationNortKindred [facility] [employer] Other History general Narrative - Reported* Type Description Date Medical History Obstructive sleep apnea Medical History Primary insomnia Medical History ZULEYKA (generalized anxiety disorde r) Medical History Cervical spondylosis with radicu lopathy Medical History Chronic venous insufficiency Medical History Seasonal allergic rhinitis due t o pollen Surgical History gum regrafting 03/2023 Hospitalization History see surgical history [facility] [employer] Other Summary Purpose Family History No Family [...] BE BASED ON THE PRIMARY CLINICAL RECORDS. [facility]. provides no warranty or guarantee of the accuracy or completeness of information in this document.
== END 2024-02-19 13:13 | disposition home or self-care (01) ==
LOC: PM 13:12
PROVIDERS: PCP Internal Medicine; Visit Provider Anesthesiology Pain Medicine
DX: R07.82 Intercostal pain (principal); R20.8 Other disturbances of skin sensation
CPT/HCPCS: 64420

== ENCOUNTER 2024-05-15 13:58 | Outpatient (OUT) | payer MEDICARE, OTHER, SELFPAY ==
--- OUTSIDE RECORDS SUMMARY | 2024-05-15 14:04 | XMS_ITS | CCD ---
Author Organization [facility] CliniSyca Care Team Providers Care Relocation Commissioner Name Role Phone VIKTORIA ., DR ARUN An Consulting Unavailable BLUM [...] DR PERAZA Primary Care Unavailable LAKSHMIPATHY ., NARREXATH Attending Jesenia vailable LAKSHMIPATHY ., NARLOBO Consulting [...] DR PERAZA Primary Care Unavailable BALL, DR EPRAZA Consulting Unavailable BALL, DR PERAZA Primary Care Unavailable BALL, DR PERAZA Admitting Unavailable BALL, DR PERAZA Attending Unavailable WEST, DR MARNI Gomez Consulting Unavailable Liam, Kamaljit Unavailable Allergies Allergy Classification Reported Allergen(s) Allergy Type Date of Onset Reaction(s) Facility (1 source) zonisamide Drug Allergy 3 [facility] Repository (5 sources) Diclofenac Drug Allergy Unknown [facility] Other (3 sources) patient allergy list reviewed by nurse or physicia Propensity to adverse reactions 9 Comment:Done [employer] [facility] [facility] Other (3 sources) Allergies Reconciled Propensity to adverse reactions Unknown [facility] Other Medications Current Medications Medication Drug Class(es) Dates Sig (Normalized) Sig (Original) cyclobenzaprine hydrochloride 10 mg oral tablet (1 source) Muscle Relaxant Start: 05-12-2024 take 10 mg by mouth once daily at bedtime Cyclobenzaprine Active 10 MG PO Daily at bedtime May 12, 2024 12:00am escitalopram 20 mg oral tablet (7 sources) Serotonin Reuptake Inhibitor Start: 03-10-2024 take 1 tablet by mouth once daily in the evening Escitalopram Oxalate Active 0 .ROUTE .COMPLEX 90 March 10, 2024 12:52pm TAKE ONE TABLET BY MOUTH EVERY EVENING Start: 03-10-2024 End: 03-10-2024 take 20 mg by mouth once daily at bedtime Escitalopram Oxalate Discontinued 20 MG PO Daily at bedtime March 10, 2024 12:00am March 10, 2024 12:52pm take 1 tablet by reji th once daily at bedtime Escitalopram Oxalate 20 MG take 1 tablet by mouth every evening at bedtime for 90 Active hydroCHLOROthiazide 25 mg oral tablet (6 sources) Thiazide Diuretic Start: 05-07-2024 take 25 mg by mouth once daily Hydrochlorothiazide Active 25 MG PO Daily May 07, 2024 12:00am take 1 tablet by reji th every twenty-four hours hydroCHLOROthiazide 25 MG 1 tablet in th e morning Orally Once a day for 90 days Active zolpidem tartrate 10 mg oral tablet (6 sources) gamma-Aminobutyric Acid-ergic Agonist Start: 05-07-2024 take 10 mg by mouth once daily at bedtime Zolpidem Active 10 MG PO Daily at bedtime May 07, 2024 12:00am Start: 05-01-2023 take 1 tablet by reji th once at bedtime as needed Zolpidem Tartrate 10 MG 1 tablet at bedtime as needed Orally q HS as needed for 30 days Apr, Active Problems Active Problems Problem Classification Problem Date Documented Da te Episodic/Chronic Anxiety disorders (9 sources) Generalized anxiety [...] disorder; Translations: [Dysthymia] Onset: 02-07-2017 Chronic Other bone disease and musculoskeletal deformities (2 sources) Other specified disorders of bone density and structure, unspecified site; Translations: [Disorder of bone and cartilage, unspecified] Onset: 01-15-2018 05-12-2024 Episodic Other bone disease and musculoskeletal deformities (1 source) Osteopenia; Translations: [Other specified disorders of bone density and structure, unspecified site] 05-12-2024 Episodic Other circulatory disease (1 source) Elevated blood-pressure [...] Hypercalcemia; Translations: [Hypercalcemia] Onset: 05-18-2018 Chronic Other screening for suspected conditions (not mental disorders or infectious disease) (11 sources) Encounter for screening mammogram for malignant neoplasm of breast; Translations: [Encounter for screening for malignant neoplasm of colon] Onset: 04-22-2017 Resolved: 07-09-2020 Episodic Other upper respiratory disease (9 sources) Allergic [...] source) Vasomotor rhinitis Chronic Residual codes; unclassified (19 sources) Obstructive sleep apnea syndrome; Translations: [Obstructive sleep apnea (adult) (pediatric)] Onset: 02-19-2019 05-07-2024 Chronic Residual codes; unclassified (2 sources) Obstructive sleep apnea (adult) (pediatric); Translations: [Obstructive sleep apnea (adult)(pediatric)] Chronic Residual codes; unclassified (1 source) Family [...] disc disorders; other back problems (13 sources) Spondylosis without myelopathy or radiculopathy, thoracic region; Translations: [Other intervertebral disc degeneration, thoracic region] Onset: 07-18-2022 05-07-2024 Chronic Unclassified (1 source) Other screening mammogram; [...] sources) Fibromyalgia; Translations: [Fibromyalgia] Onset: 01-15-2018 Episodic Residual codes; unclassified (4 sources) Requires [...] MAMM SCREEN 3D JULITA CAD Patient: QUENTIN YEE Exam Date: 12/21/2022 : 1950 Gender:F Ordering : DR KAMALJIT CHANEY D.O. Admission #: [id number] Family : Order #: [id number] CLICK HERE TO VIEW EXAM RADIOLOGY REPORT [...] lung cancer at age 78. LOCATION: [facility] BREAST COMPOSITION: Extremely dense, which lowers the [...] Marni Holly MD on 12/22/2022 at 12:36 [facility] Vital Signs Date Time Vital Sign Value Performing Clinician Facility 05-12-2024 09:51-0400 Body height 167.64 cm [facility] 05-12-2024 09:51-0400 Body mass index (BMI) [Ratio] 23.2 kg/m2 [facility] 05-12-2024 09:51-0400 Body weight 65.31 kg [facility] 05-12-2024 09:51-0400 Diastolic blood pressure 72 mm[Hg] [facility] 05-12-2024 09:51-0400 Heart rate 71 /min [facility] 05-12-2024 09:51-0400 Respiratory rate 12 /min [facility] 05-12-2024 09:51-0400 Systolic blood pressure 147 mm[Hg] [facility] 10-25-2023 08:30-0500 Body height 167.64 cm Kamaljit Ball Other [facility] Other 10-25-2023 08:30-0500 Body mass index (BMI) [Ratio] 22.56 kg/m2 Kamaljit Ball Other [facility] Other 10-25-2023 08:30-0500 Body weight 63.41 kg Kamaljit Ball Other [facility] Other 10-25-2023 08:30-0500 Diastolic blood pressure 80 mm[Hg] Kamaljit Ball Other [facility] Other 10-25-2023 08:30-0500 Respiratory rate 12 /min Kamaljit Ball Other [facility] Other 10-25-2023 08:30-0500 Systolic blood pressure 149 mm[Hg] Kamaljit Ball Other [facility] Other 05-01-2023 09:30-0400 Body height 167.64 cm Kamaljit Ball Other [facility] Other 05-01-2023 09:30-0400 Body mass index (BMI) [Ratio] 22.53 kg/m2 Kamaljit Ball Other [facility] Other 05-01-2023 09:30-0400 Body weight 63.32 kg Kamaljit Ball Other [facility] Other 05-01-2023 09:30-0400 Diastolic blood pressure 72 mm[Hg] Kamaljit Ball Other [facility] Other 05-01-2023 09:30-0400 Respiratory rate 12 /min Kamaljit Ball Other [facility] Other 05-01-2023 09:30-0400 Systolic blood pressure 135 mm[Hg] Kamaljit Chaney Other [facility] Other Encounters Encounter Date Encounter Type Care Provider Facility Start: 05-12-2024 End: 05-12-[address] [facility] Work Phone: Start: 05-12-2024 End: 05-12-2024 Patient encounter procedure [facility] Work Phone: Start: 03-10-2024 Non-patient / Non-visit [facility] Work Phone: Start: 10-25-2023 End: 10-25-2023 ambulatory Kamaljit Chaney Other [facility] Other Start: 10-25-2023 Office outpatient visit 15 minutes Kamaljit Liam [facility] Start: 08-17-2023 End: 08-17-2023 ambulatory Kamaljit Ball Other [facility] Other Start: 08-17-2023 Telephone encounter Kamaljit Chaney [facility] Start: 07-20-2023 End: 07-20-2023 ambulatory Kamaljit Chaney Other [facility] Other Start: 07-20-2023 Nursing evaluation o f patient and report Kamaljit Liam [facility] Start: 05-18-2023 End: 05-18-2023 ambulatory Kamaljit Chaney Other [facility] Other Start: 05-18-2023 Telephone encounter Kamaljit Chaney [facility] Start: 05-01-2023 End: 05-01-2023 ambulatory Kamaljit Chaney Other [facility] [facility] Other Start: 05-01-2023 Patient encounter procedure Kamaljit Chaney [facility] Start: 02-22-2023 End: 02-23-[address] KAMALJIT CHANEY Facility:[facility] Start: 01-18-2023 End: 01-19-2023 ambulatory YOJANA SHIRLEY . Facility:[facility] Start: 12-21-2022 End: 12-22-[address] KAMALJIT CHANYE Facility:[facility] Start: 10-19-2022 End: [address] ARUN BLUM . Facility:[facility] Start: 07-13-2022 End: 07-14-2022 ambulatory HILARY VIDALES . Facility:[facility] Start: 05-31-2022 End: 06-01-[address] ARUN BLUM . Facility:[facility] Start: 03-09-2022 End: 03-10-[address] ARUN BLUM . Facility:[facility] Start: 07-08-2021 Adult health examination Kamaljit Chaney Other [facility] [facility] Other Procedures Date Procedure Procedure Detail Performing Clinician Start: 12-09-2018 Screening for malign ant neoplasm of colon Kamaljit Chaney Other Start: 02-10-2015 Screening mammography B julius Chaney Other Depression screening Rosalino Chaney Other Screening for malign ant neoplasm of breast Kamaljit Chaney Other Immunizations Immunization Date Immunization Notes Care Provider Abad rapp 07-20-2023 influenza virus vaccine, unspecified formulation [facility] 07-20-2023 influenza, high dose seasonal, preservative-free Kamaljit Chaney Other [employer] [facility] Other 05-14-2023 zoster vaccine recombinant Kamaljit Chaney Other [facility] 10-25-2022 COVID-19 Pfizer (bivalent) Kamaljit Chaney Other [facility] 07-12-2022 influenza virus vaccine, split virus (incl. purified surface antigen) Kamaljit Chaney Other [facility] Other 07-12-2022 influenza virus vaccine, unspecified formulation [facility] 07-12-2022 influenza, high dose seasonal, preservative-free Kamaljit Chaney Other [facility] Other 02-06-2022 COVID-19 Pfizer Kamaljit phelps Other [facility] 07-20-2021 COVID-19 Vaccine Pfi zer - Documentation Purposes Only Kamaljit Chaney Other [facility] 07-08-2021 influenza virus vaccine, split virus (incl. purified surface antigen) Kamaljit Chaney Other [facility] Other 07-08-2021 influenza virus vaccine, unspecified formulation [facility] 12-14-2020 COVID-19 Vaccine Pfi zer - Documentation Purposes Only Kamaljit Chaney Other [facility] 11-23-2020 COVID-19 Vaccine Pfi zer - Documentation Purposes Only Kamaljit Chaney Other [facility] 07-09-2020 influenza virus vaccine, split virus (incl. purified surface antigen) Kamaljit Chaney Other [employer] [facility] [facility] Other 07-09-2020 influenza virus vaccine, unspecified formulation [facility] 08-05-2019 influenza virus vaccine, split virus (incl. purified surface antigen) Kamaljit Chaney Other [facility] Other 08-05-2019 influenza virus vaccine, unspecified formulation [facility] 08-06-2018 influenza virus vaccine, split virus (incl. purified surface antigen) Kamaljit Chaney Other [facility] Other 08-06-2018 influenza virus vaccine, unspecified formulation [facility] 08-01-2017 influenza virus vaccine, split virus (incl. purified surface antigen) Kamaljit Chaney Other [facility] Other 08-01-2017 influenza virus vaccine, unspecified formulation [facility] 09-11-2016 influenza virus vaccine, split virus (incl. purified surface antigen) Kamaljit Chaney Other [facility] Other 09-11-2016 influenza virus vaccine, unspecified formulation [facility] 08-25-2016 pneumococcal conjuga te vaccine, 13 valent Kamaljit Chaney Other [facility] 08-25-2016 pneumococcal Conjuga te, unspecified formulation; Translations: [Need for prophylactic vaccination against Streptococcus pneumoniae (pneumococcus)] Kamaljit Chaney Other [facility] Other 08-19-2015 tetanus and diphther ia toxoids, adsorbed, preservative free, for adult use (5 Lf of tetanus toxoid and 2 Lf of diphtheria toxoid) Kamaljit Chaney Other [facility] 02-19-2015 pneumococcal polysaccharide vaccine, 23 valent Kamaljit Chaney Other [facility] 07-30-2014 tetanus and diphther ia toxoids, adsorbed, preservative free, for adult use (5 Lf of tetanus toxoid and 2 Lf of diphtheria toxoid) Kamaljit Chaney Other [facility] 08-21-2013 tetanus and diphther ia toxoids, adsorbed, preservative free, for adult use (5 Lf of tetanus toxoid and 2 Lf of diphtheria toxoid) Kamaljit Chaney Other [facility] Payers Date Payer Category Payer Medicare [id number] 1961 Unknown [id number] 1950 Unknown [id number] 2.16.84 [id number] 1950 Unknown [id number] 2.16.84 [id number] 1950 Unknown [id number] 2.16.84 [id number] 1950 Unknown [id number] 2.16.84 [id number] 1950 Unknown [id number] 2.16.84 [id number] 1950 Unknown [id number] 2.16.84 [id number] 1950 Unknown [id number] 2.16.84 [id number] Social History Date Type Detail Facility Sex Assigned At [employer] Other Start: 1950 Sex Assigned At Female F [facility] Clinical Notes 03-09-2022 to 10-25-2023 Note Date [...] best 2/3 readings w/ goal < 135/85 04 Sumit, 2024 Vasomotor rhinitis (ICD-10 - J30.0) Intolerant to Flonase. Use saline rinses regularly Sudafed and expectorant daily Oct, Subacute cough (ICD-10 - R05.2) Instructed to use Robitussin or Mucinex for cough, saline or Flonase NS for congestion, Tylenol for pain and fever. Instructed on treatment of rhinitis and GERD. CXR [employer] [facility] Other 07-11-2023 Evaluation note* Encounter Date Diagnosis [...] use, the patient reduces the risk for ID, CVA, HTN, cardiac dysrhythmias and sudden cardiac [...] - Z12.11) Due for Cologuard, order sent [employer] [facility] [facility] Other 03-30-2023 NoteCONSULTATION PROCEDURE DATE: 01/18/2023 PROCEDURE: [...] symptoms during the immediate post procedural period.[id number] NoteCONSULTATION CONSULTATION DATE: 01/18/2023 TO: Kamaljit Chaney [...] agrees to proceed with the outlined plan.[facility] [id number] NoteCONSULTATION CONSULTATION DATE: 10/19/2022 HISTORY OF PRESENT [...] otherwise indicated. Patient is in agreement. [facility] [id number] NoteCONSULTATION CONSULTATION DATE: 07/13/2022 HISTORY OF PRESENT [...] in three months' time unless otherwise indicated.[facility] [id number] Note CONSULTATION PROCEDURE DATE: 07/13/2022 PREOPERATIVE DIAGNOSIS: [...] will be followed up in the office.[facility] [id number] NoteCONSULTATION CONSULTATION DATE: 05/31/2022 This is a [...] in two months' time unless otherwise indicated.[facility] [id number] NoteCONSULTATION PROCEDURE NOTE: 05/31/2022 PRE AND POSTOPERATIVE [...] will be followed up in the office.[facility] [id number] NoteThe [place], [place] NAME: QUENTIN YEE DATE OF : MEDICAL REC#: [id number] CORPORATE SALES TRAINER: [address] [facility], TRANSADMIT DATE: 03/09/2022 10:47:00 MANAGER LINUX DATE: 03/10/2022 16:00 DICTATING PHYSICIAN: HILARY VIDALES [...] Vidales CNP on 03/13/2022 02:59 PM EDT [facility] Signed and Approved by: HILARY VIDALES . 03/13/2022 14:59:00[facility]05-19-2022 NoteCONSULTATION CONSULTATION DATE: 03/09/2022 PREOPERATIVE DIAGNOSIS: [...] and Approved by: HILARY VIDALES . 03/23/2022 16:01:00[facility] Other Evaluation note* Diagnosis Onset Date Resolution Status Cervical spondylosis acute SHITAL (obstructive sleep apnea) acute Osteopenia acute Medicare annual wellness visit, subsequent noneactive Screening mammogram for breast cancer noneactive [facility] Work Phone: History general Narrative - Reported* Type Description Date Medical History Obstructive sleep apnea Medical History Primary insomnia Medical History ZULEYKA (generalized anxiety disorde r) Medical History Cervical spondylosis with radicu lopathy Medical History Chronic venous insufficiency Medical History Seasonal allergic rhinitis due t o pollen Surgical History gum regrafting 03/2023 Hospitalization History see surgical history [facility] Other Summary Purpose Family History Relationship Condition Age at Onset Recorded Date/T mabel father Heart disease Unknown mother Hypertension Unknown Advance Directives Advance Directive Response Recorded Date/ Time Advance Directives No May 12 9:32am Chief Complaint and Reason for Visit Chief Complaint Amb Documentation Medicare Wellness Reason for Visit Cervical spondylosis SHITAL (obstructive sleep apnea) Osteopenia Medicare annual wellness visit, subsequent Screening mammogram for breast cancer Additional Source Comments INFORMATION SOURCE (unrecogn ized section and content) DATE CREATED AUTHOR 03/01/[address] [facility] REASON FOR VISIT (unrecogniz ed section and content) WellnessCologuard resultsflu shotRefillcough Care Teams (unrecognized sec tion and content) Team Status: Active Member Role Status Dates Kamaljit Chaney DO Primary Care Provider Active Team Status: Active Member Role Status Dates Kamaljit Chaney DO Primary Care Provider Active Start: March 10, 2024 LUIS Cali Attending Provider Active Start : March 10, 2024 Team Status: Inactive Member Role Status Dates Kamaljit Chaney DO Primary Care Provide r, Attending Provider Active Start: May 12, 2024 End: May 12, 2024 Goals (unrecognized section and content) Goals may be documented in a n alternate section FOR RECORDS PERTAINING TO PATIENTS WHO ARE [...] BE BASED ON THE PRIMARY CLINICAL RECORDS. [facility]. provides no warranty or guarantee of the accuracy or completeness of information in this document.
--- NOTE | 2024-05-15 14:28 | P.CN_ITS ---
Consult Note: HPI Data of Consult Patient: known to practice within the last 3 years Requesting Physician: Delmis Singer NP Primary Care Provider: Kamaljit Wheeler DO Consult Narrative Reason for consult: f/u Narrative: Patient was seen today complaining of 1-9/10 pain in her shoulders bilaterally, more on the right side, described as a deep, aching pain with an occasional electrical sensation, which increases with activities such as standing, walking, performing lifting maneuvers, pushing/pulling maneuvers. Denies any change in bowel and bladder habits or new sensorimotor changes in the upper or lower extremities. mild relief with lidocaine patches and motrin. cc:: CC: Delmis Singer NP Review of Systems 2 ROS0 Status of ROS 10 or more systems reviewed and unremark able except as noted in history and below Musculoskeletal Reports: back pain Meds Home Medications and Allergies Home Medications ?Medication ?Instructions ?Recorded ?Confirmed ?Type escitalopram oxalate 10 mg tablet 10 mg PO DAILY 07/11/23 07/11/23 History (Lexapro) glucosamine [id number] 1 tab PO DAILY 07/11/23 07/11/23 History ba 1,500 mg-400 unit-100 mg tablet (Osteo Bi-Flex (5-Loxin)) hydrochlorothiazide 25 mg tablet 25 mg PO DAILY 07/11/23 07/11/23 History magnesium citrate 100 mg capsule 400 mg PO DAILY 07/11/23 07/11/23 History naproxen sodium 220 mg capsule 220 mg PO BID PRN pain 07/11/23 07/11/23 History (Aleve) vitamin B complex 1 tab PO DAILY 07/11/23 07/11/23 History Allergies Allergy/AdvReac Type Severity Reaction Status Date / Time zonisamide [From Zonegran] Allergy Unknown Verified 07/11/23 08:35 Exam Constitutional Documenting provider has reviewed patient's vital signs: yes Common normals: no apparent distress, oriented x3, healthy appearing, alert and well nourished General appearance: cooperative HENMT Common normals: normocephalic, hearing grossly normal bilaterally and moist oral mucous membranes Head and scalp: normocephalic Eye Common normals: PERRL Pupil: PERRL Neck & C-Spine Common normals: full ROM General: normal visual inspection Chest Common normals: inspection of chest normal Respiratory Common normals: normal respiratory effort, no retractions and no use of accessory muscles Back & Pelvis Thoracic spine/upper back: ROM limited, thoracic spinal tenderness, paraspinal muscle tenderness and paraspinal muscle spasm Other: pain and dysthesia following right T7 and T8 dermatomal pattern notable myofascial pain and tightness across bilateral trapezius muscles as noted below Back image (female): 2 1. 2. Extremity Common normals: normal to inspection and full ROM Neuro Common normals: oriented x3, CN's II-XII intact bilaterally, moves all extremities, no focal motor deficits, no sensory deficits noted, deep tendon reflexes 2+ bilaterally and gait normal Sensorium/orientation: alert Motor exam: strength 5/5 throughout and no movement abnormalities noted Psych Common normals: mental status grossly normal, thought process normal, cooperative, affect normal, speech normal and activity/motor behavior normal Speech: normal speech Thought process: normal thought process Assessment and Plan Assessment and Plan (1) Intercostal neuritis: (2) Myalgia, other site: Plan repeat right T7 and T8 intercostal nerve block with Dr Malloy, previously found benefit >50% for greater than 3 months continue PRN motrin and lidocaine patches PT for bilateral trapzeius myofascial pain, recommend dry needling massage and TENS f/u with Dr Malloy
== END 2024-05-15 13:59 | disposition home or self-care (01) ==
LOC: PM 13:59
PROVIDERS: PCP Internal Medicine; Visit Provider Nurse Practitioner
DX: G58.0 Intercostal neuropathy (principal); M79.10 Myalgia, unspecified site
CPT/HCPCS: G0463

== ENCOUNTER 2024-05-20 12:11 | Outpatient (OUT) | payer MEDICARE, OTHER, SELFPAY ==
--- NOTE | 2024-05-20 | CONS_ITS ---
PROCEDURE DATE: 05/20/2024 PROCEDURE: Right T7 and T8 intercostal nerve injection. 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 SOLUTION USED FOR INJECTION: 2 mL of 2% lidocaine, 2 mL of 0.25% Marcaine and 10 mg of Kenalog, total of 5 mL, and 2 mL used for the injection at each site. IMMEDIATE COMPLICATION: None. PROCEDURE: After informed consent was obtained from the patient, placed in the sitting position, slightly flexed forward. Skin overlying the area was prepped alcohol. A 25 gauge, 1 ?? needle was inserted over the right T7 rib, approximately 3 cm from midline. Needle was advanced until it was encountered. Walked the needle off inferiorly depositing 2 mL of solution. Performed this in a similar fashion at T10 level. No indication of intravascular or intraneural or intrapleural needle tip placement or injection. Post procedure, needle was removed. Patient reported a marked reduction in pain symptoms. [facility]
--- OUTSIDE RECORDS SUMMARY | 2024-05-20 12:27 | XMS_ITS | CCD ---
Author Organization [facility] CliniSyme Care Team Providers Care Wage Hand Name Role Phone VIKTORIA ., DR ARUN [...] Care Unavailable BALL, DR PERAZA Consulting Unavailable BALL, DR PERAZA Primary Care Unavailable BALL, DR PERAZA Admitting Unavailable BALL, DR PERAZA Attending Unavailable WEST, DR MARNI Gomez Consulting Unavailable Liam, Kamaljit Unavailable Allergies Allergy Classification Reported Allergen(s) Allergy Type Date of Onset Reaction(s) Facility (1 source) zonisamide Drug Allergy 3 [facility] Repository (5 sources) Diclofenac Drug Allergy Unknown [facility] Other (3 sources) patient allergy list reviewed by nurse or physicia Propensity to adverse reactions 9 Comment:Done [facility] Other (3 sources) Allergies Reconciled Propensity to adverse reactions Unknown [facility] Other Medications Current Medications Medication Drug Class(es) [...] : DR KAMALJIT CHANEY D.O. Admission #: [id number] Family : Order #: [id number] CLICK HERE TO VIEW EXAM RADIOLOGY REPORT [...] lung cancer at age 78. LOCATION: [facility] BREAST COMPOSITION: Extremely dense, which lowers [...] Marni Holly MD on 12/22/2022 at 12:36 [facility] Vital Signs Date Time Vital Sign Value Performing Clinician Facility 05-12-2024 09:51-0400 Body height 167.64 cm [facility] 05-12-2024 09:51-0400 Body mass index (BMI) [Ratio] 23.2 kg/m2 [facility] 05-12-2024 09:51-0400 Body weight 65.31 kg [facility] 05-12-2024 09:51-0400 Diastolic blood pressure 72 mm[Hg] [facility] 05-12-2024 09:51-0400 Heart rate 71 /min [facility] 05-12-2024 09:51-0400 Respiratory rate 12 /min [facility] 05-12-2024 09:51-0400 Systolic blood pressure 147 mm[Hg] [facility] 10-25-2023 08:30-0500 Body height 167.64 cm Kamaljit Ball Other [facility] Other 10-25-2023 08:30-0500 Body mass index (BMI) [Ratio] 22.56 kg/m2 Kamaljit Ball Other [facility] Other 10-25-2023 08:30-0500 Body weight 63.41 kg Kamaljit Ball Other [facility] Other 10-25-2023 08:30-0500 Diastolic blood pressure 80 mm[Hg] Kamaljit Ball Other [facility] Other 10-25-2023 08:30-0500 Respiratory rate 12 /min Kamaljit Ball Other [facility] Other 10-25-2023 08:30-0500 Systolic blood pressure 149 mm[Hg] Kamaljit Ball Other [facility] Other 05-01-2023 09:30-0400 Body height 167.64 cm Kamaljit Ball Other [facility] Other 05-01-2023 09:30-0400 Body mass index (BMI) [Ratio] 22.53 kg/m2 Kamaljit Ball Other [facility] Other 05-01-2023 09:30-0400 Body weight 63.32 kg Kamaljit Ball Other [facility] Other 05-01-2023 09:30-0400 Diastolic blood pressure 72 mm[Hg] Kamaljit Ball Other [facility] Other 05-01-2023 09:30-0400 Respiratory rate 12 /min Kamaljit Ball Other [facility] Other 05-01-2023 09:30-0400 Systolic blood pressure 135 mm[Hg] Kamaljit Chaney Other [facility] Other Encounters Encounter Date Encounter Type Care Provider Facility Start: 05-12-2024 End: 05-12-2024 ambulatory [facility] Work Phone: Start: 05-12-2024 End: 05-12-2024 Patient encounter procedure [facility] Work Phone: Start: 03-10-2024 Non-patient / Non-visit [facility] Work Phone: Start: 10-25-2023 End: 10-25-2023 ambulatory Kamaljit Chaney Other [facility] Other Start: 10-25-2023 Office outpatient visit 15 minutes Kamaljit Liam [facility] Start: 08-17-2023 End: 08-17-2023 ambulatory Kamaljit Ball Other [facility] Other Start: 08-17-2023 Telephone encounter Kamaljit Chaney [facility] Start: 07-20-2023 End: 07-20-2023 ambulatory Kamaljit Chaney Other [facility] Other Start: 07-20-2023 Nursing evaluation o f patient and report Kamaljit Liam [facility] Start: 05-18-2023 End: 05-18-2023 ambulatory Kamaljit Chaney Other [facility] Other Start: 05-18-2023 Telephone encounter Kamaljit Chaney [facility] Start: 05-01-2023 End: 05-01-2023 ambulatory Kamaljit Chaney Other [facility] Other Start: 05-01-2023 Patient encounter procedure Kamaljit Chaney [facility] Start: 02-22-2023 End: 02-23-[address] [...] 07-08-2021 Adult health examination Kamaljit Chaney Other [facility] Other Procedures Date Procedure Procedure Detail Performing Clinician Start: 12-09-2018 Screening for malign ant neoplasm of colon Kamaljit Chaney Other Start: 02-10-2015 Screening mammography B julius Chaney Other Depression screening Rosalino Chaney Other Screening for malign ant neoplasm of breast Kamaljit Chaney Other Immunizations Immunization Date Immunization Notes Care Provider Abad rapp 07-20-2023 influenza virus vaccine, unspecified formulation [facility] 07-20-2023 influenza, high dose seasonal, preservative-free Kamaljit Chaney Other [employer] [facility] Other 05-14-2023 zoster vaccine recombinant Kamaljit Chaney Other [facility] 10-25-2022 COVID-19 Pfizer (bivalent) Kamaljit Chaney Other [facility] 07-12-2022 influenza virus vaccine, split virus (incl. purified surface antigen) Kamaljit Chaney Other [facility] Other 07-12-2022 influenza virus vaccine, unspecified formulation [facility] 07-12-2022 influenza, high dose seasonal, preservative-free Kamaljit Chaney Other [facility] Other 02-06-2022 COVID-19 Pfizer Kamaljit phelps Other [facility] 07-20-2021 COVID-19 Vaccine Pfi zer - Documentation Purposes Only Kamaljit Chaney Other [facility] 07-08-2021 influenza virus vaccine, split virus (incl. purified surface antigen) Kamaljit Chaney Other [facility] Other 07-08-2021 influenza virus vaccine, unspecified formulation [facility] 12-14-2020 COVID-19 Vaccine Pfi zer - Documentation Purposes Only Kamaljit Chaney Other [facility] 11-23-2020 COVID-19 Vaccine Pfi zer - Documentation Purposes Only Kamaljit Chaney Other [facility] 07-09-2020 influenza virus vaccine, split virus (incl. purified surface antigen) Kamaljit Chaney Other [facility] Other 07-09-2020 influenza virus vaccine, unspecified formulation [facility] 08-05-2019 influenza virus vaccine, split virus (incl. purified surface antigen) Kamaljit Chaney Other [facility] Other 08-05-2019 influenza virus vaccine, unspecified formulation [facility] 08-06-2018 influenza virus vaccine, split virus (incl. purified surface antigen) Kamaljit Chaney Other [facility] Other 08-06-2018 influenza virus vaccine, unspecified formulation [facility] 08-01-2017 influenza virus vaccine, split virus (incl. purified surface antigen) Kamaljit Chaney Other [facility] Other 08-01-2017 influenza virus vaccine, unspecified formulation [facility] 09-11-2016 influenza virus vaccine, split virus (incl. purified surface antigen) Kamaljit Chaney Other [facility] Other 09-11-2016 influenza virus vaccine, unspecified formulation [facility] 08-25-2016 pneumococcal conjuga te vaccine, 13 valent Kamaljit Chaney Other [facility] 08-25-2016 pneumococcal Conjuga te, unspecified formulation; Translations: [Need for prophylactic vaccination against Streptococcus pneumoniae (pneumococcus)] Kamaljit Chaney Other [facility] Other 08-19-2015 tetanus and diphther ia toxoids, adsorbed, preservative free, for adult use (5 Lf of tetanus toxoid and 2 Lf of diphtheria toxoid) Kamaljit Chaney Other [facility] 02-19-2015 pneumococcal polysaccharide vaccine, 23 valent Kamaljit Chaney Other [facility] 07-30-2014 tetanus and diphther ia toxoids, adsorbed, preservative free, for adult use (5 Lf of tetanus toxoid and 2 Lf of diphtheria toxoid) Kamaljit Chaney Other [facility] 08-21-2013 tetanus and diphther ia toxoids, adsorbed, preservative free, for adult use (5 Lf of tetanus toxoid and 2 Lf of diphtheria toxoid) Kamaljit Chaney Other [facility] Payers Date Payer Category Payer Medicare [id number] 1961 Unknown [id number] 1950 Unknown [id number] 2.16.84 [id number] 1950 Unknown [id number] 2.16.84 [id number] 1950 Unknown [id number] 2.16.84 [id number] 1948 Unknown [id number] 2.16.84 [id number] 1948 Unknown [id number] 2.16.84 [id number] 1948 Unknown [id number] 2.16.84 [id number] 1950 Unknown [id number] 2.16.84 [id number] Social History Date Type Detail Facility Sex Assigned At [facility] Other Start: 1950 Sex Assigned At Female [facility] Clinical Notes 03-09-2022 to 10-25-2023 Note [...] on treatment of rhinitis and GERD. CXR [facility] Other 07-11-2023 Evaluation note* Encounter Date Diagnosis [...] use, the patient reduces the risk for PA, CVA, HTN, cardiac dysrhythmias and sudden cardiac [...] - Z12.11) Due for Cologuard, order sent [facility] Other 03-30-2023 NoteCONSULTATION PROCEDURE DATE: 01/18/2023 PROCEDURE: [...] symptoms during the immediate post procedural period.[id number] NoteCONSULTATION CONSULTATION DATE: 01/18/2023 TO: Kamaljit Chaney [...] agrees to proceed with the outlined plan.[facility] [id number] NoteCONSULTATION CONSULTATION DATE: 10/19/2022 HISTORY OF PRESENT [...] otherwise indicated. Patient is in agreement. [facility] [id number] NoteCONSULTATION CONSULTATION DATE: 07/13/2022 HISTORY OF PRESENT [...] in three months' time unless otherwise indicated.[facility] [id number] Note CONSULTATION PROCEDURE DATE: 07/13/2022 PREOPERATIVE DIAGNOSIS: [...] will be followed up in the office.[facility] [id number] NoteCONSULTATION CONSULTATION DATE: 05/31/2022 This is a [...] in two months' time unless otherwise indicated.[facility] [id number] NoteCONSULTATION PROCEDURE NOTE: 05/31/2022 PRE AND POSTOPERATIVE [...] will be followed up in the office.[facility] [id number] NoteThe [place], [place] NAME: QUENTIN YEE DATE OF : MEDICAL REC#: [id number] SOFT IRON INSPECTOR: [address] [facility], TRANSADMIT DATE: 03/09/2022 10:47:00 DATA ANALYTICS SPECIALIST DATE: 03/10/2022 16:00 DICTATING PHYSICIAN: HILARY VIDALES [...] Vidales CNP on 03/13/2022 02:59 PM EDT [facility] Signed and Approved by: HILARY VIDALES . 03/13/2022 14:59:00[facility]05-19-2022 NoteCONSULTATION CONSULTATION DATE: 03/09/2022 PREOPERATIVE DIAGNOSIS: [...] Approved by: HILARY VIDALES . 03/23/2022 16:01:00[facility] Other Evaluation note* Diagnosis Onset Date Resolution Status Cervical spondylosis acute SHITAL (obstructive sleep apnea) acute Osteopenia acute Medicare annual wellness visit, subsequent noneactive Screening mammogram for breast cancer noneactive [facility] Work Phone: History general Narrative - Reported* Type Description Date Medical History Obstructive sleep apnea Medical History Primary insomnia Medical History ZULEYKA (generalized anxiety disorde r) Medical History Cervical spondylosis with radicu lopathy Medical History Chronic venous insufficiency Medical History Seasonal allergic rhinitis due t o pollen Surgical History gum regrafting 03/2023 Hospitalization History see surgical history [facility] Other Summary Purpose Family History Relationship Condition [...] and content) DATE CREATED AUTHOR 03/01/2023 [facility] REASON FOR VISIT (unrecogniz ed section [...] BE BASED ON THE PRIMARY CLINICAL RECORDS. [facility] [employer] [facility]. provides no warranty or guarantee of the accuracy or completeness of information in this document.
== END 2024-05-20 12:12 | disposition home or self-care (01) ==
PROVIDERS: PCP Internal Medicine; Visit Provider Nurse Practitioner
DX: G58.0 Intercostal neuropathy (principal)
CPT/HCPCS: 64420; 64421; J0665; J3301

== ENCOUNTER 2024-05-22 09:55 | Outpatient (RCR) | payer MEDICARE, OTHER, SELFPAY | END 2024-07-09 12:48 | disposition home or self-care (01) | LOC: PT 09:55 | PROVIDERS: PCP Anesthesiology Pain Medicine; Visit Provider Nurse Practitioner | DX: M79.18 Myalgia, other site (principal); R51.9 Headache, unspecified | CPT/HCPCS: 20561; 97012; 97110; 97140; 97161 ==

== ENCOUNTER 2024-08-05 11:17 | Outpatient (OUT) | payer MEDICARE, OTHER, SELFPAY ==
--- NOTE | 2024-08-05 | CONS_ITS ---
CONSULTATION DATE: 08/05/2024 TO: Dr. Wheeler HISTORY: Patient returns today complaining of 2-5/10 pain in her shoulder area on the right. It is described as a deep aching pain with sharp component, increased with activities such as lifting maneuvers, pushing/pulling maneuvers. Her ENRICO on today?s visit is 14%. MEDICATION: Includes Flexeril and lidocaine patch. She uses ibuprofen infrequently and she is responsive to ibuprofen when she does take it. EXAMINATION: Notable for patient having dysesthesia along the right T7-T8 dermatome and no significant myofascial dysfunction. The dysesthesia was mild and she had no allodynia or hyperpathia over this area. 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 RECOMMENDATIONS: I recommend no further intervention at this time, but to continue with the current regimen of medicines and see the patient back in the office in approximately three months? time or sooner if needed. As part of providing excellent, safe, comprehensive care, the following was completed at our patient's visit: 1. A medication reconciliation and review to ensure accurate knowledge of current/active medications, including asking our patients to inform us about any [id number] medications or herbal remedies/nutritional supplements/alternative remedies. 2. A review to specifically ensure our patients have had annual screening for: elevated body mass index (BMI, see intake chart for exact total), tobacco use, screening for depression, and screening for unhealthy alcohol use. When screening is concerning, patients are provided with education and the specific recommendation to discuss the concerning health issue and treatment options with their primary care provider. [facility]
--- OUTSIDE RECORDS SUMMARY | 2024-08-05 11:38 | XMS_ITS | CCD ---
Author Organization [facility] Care Team Providers Care Tarring Machine Operator Name Role Phone VIKTORIA ., DR ARUN [...] HILARY Consulting Unavailable BLUM ., DR ARUN nA Attending Unavailable BLUM ., DR ARUN An Admitting Unavailable BALL, DR EPRAZA Primary Care Unavailable BALL, DR PERAZA Consulting Unavailable BALL, DR PERAZA Primary Care Unavailable BALL, DR PERAZA Admitting Unavailable BALL, DR PERAZA Attending Unavailable WEST, DR MARNI Gomez Consulting Unavailable Liam, Kamaljit Unavailable Allergies Allergy Classification Reported Allergen(s) Allergy Type Date of Onset Reaction(s) Facility (1 source) zonisamide Drug Allergy [address] [facility] Repository (5 sources) Diclofenac Drug Allergy Unknown [facility] Other (3 sources) patient allergy list reviewed by nurse or physicia Propensity to adverse reactions 9 Comment:Done [facility] Other (3 sources) Allergies Reconciled Propensity to adverse reactions Unknown [facility] Other Medications Current Medications Medication Drug Class(es) Dates Sig (Normalized) Sig (Original) cyclobenzaprine hydrochloride 10 mg oral tablet (2 sources) Muscle Relaxant Start: 05-12-2024 take 10 mg by mouth once daily at bedtime Cyclobenzaprine Active 10 MG PO Daily at bedtime May 12, 2024 12:00am escitalopram 20 mg oral tablet (9 sources) Serotonin Reuptake Inhibitor Start: 03-10-2024 take [...] 90 Active hydroCHLOROthiazide 25 mg oral tablet (7 sources) Thiazide Diuretic Start: 05-07-2024 take 25 mg by mouth once daily Hydrochlorothiazide Active 25 MG PO Daily May 07, 2024 12:00am take 1 tablet by reji th every twenty-four hours hydroCHLOROthiazide 25 MG 1 tablet in th e morning Orally Once a day for 90 days Active zolpidem tartrate 10 mg oral tablet (7 sources) gamma-Aminobutyric Acid-ergic Agonist Start: 05-07-2024 take [...] Chronic Other bone disease and musculoskeletal deformities (3 sources) Other specified disorders of bone density and structure, unspecified site; Translations: [Disorder of bone and cartilage, unspecified] Onset: 01-15-2018 05-12-2024 Episodic Other bone disease and musculoskeletal deformities (2 sources) Osteopenia; Translations: [Other specified disorders of bone [...] conditions (not mental disorders or infectious disease) (12 sources) Encounter for screening mammogram for malignant [...] source) Vasomotor rhinitis Chronic Residual codes; unclassified (20 sources) Obstructive sleep apnea syndrome; Translations: [Obstructive sleep apnea (adult) (pediatric)] Onset: 02-19-2019 05-07-2024 Chronic Residual codes; unclassified (3 sources) Obstructive sleep apnea (adult) (pediatric); Translations: [...] Spondylosis; intervertebral disc disorders; other back problems (15 sources) Spondylosis without myelopathy or radiculopathy, thoracic [...] : DR KAMALJIT CHANEY D.O. Admission #: [id number] Family : Order #: [id number] CLICK HERE TO VIEW EXAM RADIOLOGY REPORT [...] lung cancer at age 78. LOCATION: [facility] BREAST COMPOSITION: Extremely dense, which lowers [...] Marni Holly MD on 12/22/2022 at 12:36 [facility] Vital Signs Date Time Vital Sign Value Performing Clinician Facility 05-12-2024 09:51-0400 Body height 167.64 cm [facility] 05-12-2024 09:51-0400 Body mass index (BMI) [Ratio] 23.2 kg/m2 [facility] 05-12-2024 09:51-0400 Body weight 65.31 kg [facility] 05-12-2024 09:51-0400 Diastolic blood pressure 72 mm[Hg] [facility] 05-12-2024 09:51-0400 Heart rate 71 /min [facility] 05-12-2024 09:51-0400 Respiratory rate 12 /min [facility] 05-12-2024 09:51-0400 Systolic blood pressure 147 mm[Hg] [facility] 10-25-2023 08:30-0500 Body height 167.64 cm Kamaljit Ball Other [facility] Other 10-25-2023 08:30-0500 Body mass index (BMI) [Ratio] 22.56 kg/m2 Kamaljit Ball Other [facility] Other 10-25-2023 08:30-0500 Body weight 63.41 kg Kamaljit Ball Other [facility] Other 10-25-2023 08:30-0500 Diastolic blood pressure 80 mm[Hg] Kamaljit Ball Other [facility] Other 10-25-2023 08:30-0500 Respiratory rate 12 /min Kamaljit Ball Other [facility] Other 10-25-2023 08:30-0500 Systolic blood pressure 149 mm[Hg] Kamaljit Ball Other [facility] Other 05-01-2023 09:30-0400 Body height 167.64 cm Kamaljit Ball Other [facility] Other 05-01-2023 09:30-0400 Body mass index (BMI) [Ratio] 22.53 kg/m2 Kamaljit Ball Other [facility] Other 05-01-2023 09:30-0400 Body weight 63.32 kg Kamaljit Ball Other [facility] Other 05-01-2023 09:30-0400 Diastolic blood pressure 72 mm[Hg] Kamaljit Ball Other [facility] Other 05-01-2023 09:30-0400 Respiratory rate 12 /min Kamaljit Ball Other [facility] Other 05-01-2023 09:30-0400 Systolic blood pressure 135 mm[Hg] Kamaljit Ball Other [facility] Other Encounters Encounter Date Encounter Type Care Provider Facility Start: 07-25-2024 End: 07-25-2024 ambulatory [facility] Work Phone: Start: 07-25-2024 End: 07-25-2024 Patient encounter procedure [facility] Work Phone: Start: 05-12-2024 End: 05-12-2024 ambulatory [facility] Work Phone: Start: 05-12-2024 End: 05-12-2024 Patient encounter procedure [facility] Work Phone: Start: 03-10-2024 Non-patient / Non-visit [facility] Work Phone: Start: 10-25-2023 End: 10-25-2023 ambulatory Kamaljit Chaney Other [facility] Other Start: 10-25-2023 Office outpatient visit 15 minutes Kamaljit Chaney [facility] Start: 08-17-2023 End: 08-17-2023 ambulatory Kamaljit Chaney Other [facility] Other Start: 08-17-2023 Telephone encounter Kamaljit Chaney [facility] Start: 07-20-2023 End: 07-20-2023 ambulatory Kamaljit Chaney Other [facility] Other Start: 07-20-2023 Nursing evaluation o f patient and report Kamaljit Liam [facility] Start: 05-18-2023 End: 05-18-2023 ambulatory Kamaljit Chaney Other [facility] Other Start: 05-18-2023 Telephone encounter Kamaljit Chaney [facility] Start: 05-01-2023 End: 05-01-2023 ambulatory Kamaljit Liam Other [facility] Other Start: 05-01-2023 Patient encounter procedure Kamaljit Chaney [facility] Start: 02-22-2023 End: 02-23-[address] KAMALJIT CHANEY Facility:[facility] Start: 01-18-2023 End: 01-19-2023 ambulatory NARJANESRANATH LAKSHMIPATHY . Facility:[facility] Start: 12-21-2022 End: 12-22-[address] KAMALJIT CHANEY Facility:[facility] Start: 10-19-2022 End: [address] ARUN BLUM . Facility:[facility] Start: 07-13-2022 End: 07-14-2022 ambulatory HILARY VIDALES . Facility:[facility] Start: 05-31-2022 End: 06-01-[address] ARUN BLUM . Facility:[facility] Start: 03-09-2022 End: 03-10-[address] RAUN BLUM . Facility:[facility] Start: 07-08-2021 Adult health examination Kamaljit Chaney Other [facility] Other Procedures Date Procedure Procedure Detail Performing Clinician Start: 12-09-2018 Screening for malign ant neoplasm of colon Kamaljit Chaney Other Start: 02-10-2015 Screening mammography B julius Chaney Other Depression screening Rosalino Chaney Other Screening for malign ant neoplasm of breast Kamaljit Chaney Other Immunizations Immunization Date Immunization Notes Care Provider Abad rapp 07-25-2024 influenza, high dose seasonal, preservative-free [facility] 07-20-2023 influenza virus vaccine, unspecified formulation [facility] 07-20-2023 influenza, high dose seasonal, preservative-free Kamaljit Chaney Other [facility] Other 05-14-2023 zoster vaccine recombinant Kamaljit Chaney Other [facility] 10-25-2022 COVID-19 Pfizer (bivalent) Kamaljit Chaney Other [facility] 07-12-2022 influenza virus vaccine, split virus (incl. purified surface antigen) Kamaljit Chaney Other [facility] Other 07-12-2022 influenza virus vaccine, unspecified formulation [facility] 07-12-2022 influenza, high dose seasonal, preservative-free Kamaljit Chaney Other [facility] Other 02-06-2022 COVID-19 Pfizer Kamaljit phelps Other [facility] 07-20-2021 COVID-19 Vaccine Pfi zer - Documentation Purposes Only Kamaljit Chaney Other [facility] 07-08-2021 influenza virus vaccine, split virus (incl. purified surface antigen) Kamaljit Chaney Other [facility] Other 07-08-2021 influenza virus vaccine, unspecified formulation [facility] 12-14-2020 COVID-19 Vaccine Pfi zer - Documentation Purposes Only Kamaljit Chaney Other [facility] 11-23-2020 COVID-19 Vaccine Pfi zer - Documentation Purposes Only Kamaljit Chaney Other [facility] 07-09-2020 influenza virus vaccine, split virus (incl. purified surface antigen) Kamaljit Chaney Other [facility] Other 07-09-2020 influenza virus vaccine, unspecified formulation [facility] 08-05-2019 influenza virus vaccine, split virus (incl. purified surface antigen) Kamaljit Chaney Other [facility] Other 08-05-2019 influenza virus vaccine, unspecified formulation [facility] 08-06-2018 influenza virus vaccine, split virus (incl. purified surface antigen) Kamaljit Chaney Other [facility] Other 08-06-2018 influenza virus vaccine, unspecified formulation [facility] 08-01-2017 influenza virus vaccine, split virus (incl. purified surface antigen) Kamaljit Chaney Other [facility] Other 08-01-2017 influenza virus vaccine, unspecified formulation [facility] 09-11-2016 influenza virus vaccine, split virus (incl. purified surface antigen) Kamaljit Chaney Other [facility] Other 09-11-2016 influenza virus vaccine, unspecified formulation [facility] 08-25-2016 pneumococcal conjuga te vaccine, 13 valent Kamaljit Chaney Other [facility] 08-25-2016 pneumococcal Conjuga te, unspecified formulation; Translations: [Need for prophylactic vaccination against Streptococcus pneumoniae (pneumococcus)] Kamaljit Liam Other [facility] Other 08-19-2015 tetanus and diphther ia toxoids, adsorbed, preservative free, for adult use (5 Lf of tetanus toxoid and 2 Lf of diphtheria toxoid) Kamaljit Chaney Other [facility] 02-19-2015 pneumococcal polysaccharide vaccine, 23 valent Kamaljit Chaney Other [facility] 07-30-2014 tetanus and diphther ia toxoids, adsorbed, preservative free, for adult use (5 Lf of tetanus toxoid and 2 Lf of diphtheria toxoid) Kamaljit Chaney Other [facility] 08-21-2013 tetanus and diphther ia toxoids, adsorbed, preservative free, for adult use (5 Lf of tetanus toxoid and 2 Lf of diphtheria toxoid) Kamaljit Chaney Other [facility] Payers Date Payer Category Payer Medicare [id number] 1961 Unknown [id number] 1950 Unknown [id number] 2.16.84 [id number] 1950 Unknown [id number] 2.16.84 [id number] 1950 Unknown [id number] 2.16.84 [id number] 1948 Unknown [id number] 2.16.84 [id number] 1948 Unknown [id number] 2.16.84 [id number] 1948 Unknown [id number] 2.16.84 [id number] 1948 Unknown [id number] 2.16.84 [id number] Social History Date Type Detail Facility Sex Assigned At [facility] Other Start: 1950 Sex Assigned At Female F [facility] Clinical Notes 03-09-2022 to 10-25-2023 Note Date [...] on treatment of rhinitis and GERD. CXR [facility] Other 07-11-2023 Evaluation note* Encounter Date Diagnosis [...] colon cancer (ICD-10 - Z12.11) Due for Colcarriuard, order sent [facility] Other 03-30-2023 NoteCONSULTATION PROCEDURE DATE: 01/18/2023 PROCEDURE: [...] symptoms during the immediate post procedural period.[facility] [id number] NoteCONSULTATION CONSULTATION DATE: 01/18/2023 TO: Kamaljit Chaney [...] agrees to proceed with the outlined plan.[facility] [id number] NoteCONSULTATION CONSULTATION DATE: 10/19/2022 HISTORY OF PRESENT [...] otherwise indicated. Patient is in agreement. [facility] [id number] NoteCONSULTATION CONSULTATION DATE: 07/13/2022 HISTORY OF PRESENT [...] 5 mg. Education is given on using BigDNAub and heat application to the cervical trapezius site. We will see the patient in three months' time unless otherwise indicated.[facility] [id number] Note CONSULTATION PROCEDURE DATE: 07/13/2022 PREOPERATIVE DIAGNOSIS: [...] will be followed up in the office.[facility] [id number] NoteCONSULTATION CONSULTATION DATE: 05/31/2022 This is a [...] in two months' time unless otherwise indicated.[facility] [id number] NoteCONSULTATION PROCEDURE NOTE: 05/31/2022 PRE AND POSTOPERATIVE [...] will be followed up in the office.[facility] [id number] NoteThe [place], [place] NAME: QUENTIN YEE Annabel DATE OF : MEDICAL REC#: [id number] BASEBALL INSPECTOR: [facility], TRANSADMIT DATE: 03/09/2022 10:47:00 PROJECT MANAGER INDUSTRIAL DATE: 03/10/2022 16:00 DICTATING PHYSICIAN: HILARY VIDALES [...] and Approved by: HILARY VIDALES . 03/13/2022 14:59:00[facility]05-19-2022 NoteCONSULTATION CONSULTATION DATE: 03/09/2022 PREOPERATIVE DIAGNOSIS: [...] will be followed up in the clinic. [facility] Signed and Approved by: HILARY VIDALES . 03/23/2022 16:01:00[facility] noteNo InformationNortThomas [facility] Other Evaluation note* Diagnosis Onset Date Resolution Status Cervical spondylosis acute SHITAL (obstructive sleep apnea) acute Osteopenia acute Medicare annual wellness visit, subsequent noneactive Screening mammogram for breast cancer noneactive [facility] Work Phone: History general Narrative - Reported* Type Description Date Medical History Obstructive sleep apnea Medical History Primary insomnia Medical History ZULEYKA (generalized anxiety disorde r) Medical History Cervical spondylosis with radicu lopathy Medical History Chronic venous insufficiency Medical History Seasonal allergic rhinitis due t o pollen Surgical History gum regrafting 03/2023 Hospitalization History see surgical history [facility] Other Summary Purpose Family History Relationship Condition [...] visit, subsequent Screening mammogram for breast cancer Chief Complaint Medicare Wellness flu shot Reason for Visit Cervical spondylosis SHITAL (obstructive sleep apnea) Osteopenia Medicare annual wellness visit, subsequent Screening mammogram for breast cancer Additional Source Comments INFORMATION SOURCE (unrecogn ized section and content) DATE CREATED AUTHOR 03/01/2023 [facility] pital REASON FOR VISIT (unrecogniz ed section and content) WellnessCologuard resultsflu shotRefillcough Care Teams (unrecognized sec tion and content) Team Status: Active Member Role Status Dates Kamaljit Chaney DO Primary Care Provider Active Team Status: Inactive Member Role Status Dates Kamaljit Chaney DO Primary Care Provide r, Attending Provider Active Start: May 12, 2024 End: May 12, 2024 Team Status: Inactive Member Role Status Dates Kamaljit Ball , DO Primary Care Provide r, Attending Provider Active Start: July 25, 2024 End: July 25, 2024 Team Status: Active Member Role Status Dates Kamaljit Chaney , DO Primary Care Provider Active Team Status: Active Member Role Status Dates Kamaljit Chaney , DO Primary Care Provider Active Start: March 10, 2024 LUIS Cali Attending Provider Active Start : March 10, 2024 Team Status: Inactive Member Role Status Dates Kamaljit Chaney , DO Primary Care Provide r, Attending Provider Active Start: May 12, 2024 End: May 12, 2024 Team Status: Inactive Member Role Status Dates Kamaljit Chaney , DO Primary Care Provide r, Attending Provider Active Start: July 25, 2024 End: July 25, 2024 Goals (unrecognized section and content) Goals [...] BE BASED ON THE PRIMARY CLINICAL RECORDS. [facility] [employer] provides no warranty or guarantee of the accuracy or completeness of information in this document.
== END 2024-08-05 11:18 | disposition home or self-care (01) ==
LOC: PM 11:18
PROVIDERS: PCP Anesthesiology Pain Medicine; Visit Provider Anesthesiology Pain Medicine
DX: M54.14 Radiculopathy, thoracic region (principal)
CPT/HCPCS: G0463

== ENCOUNTER 2024-10-28 12:54 | Outpatient (OUT) | payer MEDICARE, OTHER, SELFPAY ==
--- NOTE | 2024-10-28 | CONS_ITS ---
CONSULTATION DATE: 10/28/2024 TO: Dr. Wheeler HISTORY: Patient returns today complaining of 0-3/10 pain in her right upper back area, right mid thoracic area, described as a deep aching pain at times, occasionally becoming burning and develops a ?shock? type sensation, which occurs occasionally, exacerbated primarily with prolonged car rides or sitting too long. She feels most comfortable in the semi-recumbent position. Denies any change in bowel and bladder habits or new sensorimotor changes in her upper or lower extremities. CURRENT MEDICATION: Includes Flexeril 10 mg daily p.r.n. She uses it approximately 2-3 times per week at the most. She has also been using a lidocaine patch applied to the area as well. EXAM: Her examination is notable for patient having very mild dysesthesia along the right T7 and T8 dermatome. There appears to be very mild myofascial dysfunction with myalgia of the right iliocostalis muscle at the current time. IMPRESSION: Our impression is patient appears to have pain with right T7-T8 intercostal neuritis which is stable. RECOMMENDATIONS: I recommend no further intervention for her current pain symptoms, but continue with her current medications as needed, and will see the patient back in the office in six months? time or sooner if needed. As part of providing excellent, safe, comprehensive care, the following was completed at our patient's visit: 1. A medication reconciliation and review to ensure accurate knowledge of current/active medications, including asking our patients to inform us about any lfrb-liw-[id number] medications or herbal remedies/nutritional supplements/alternative remedies. 2. A review to specifically ensure our patients have had annual screening for: elevated body mass index (BMI, see intake chart for exact total), tobacco use, screening for depression, and screening for unhealthy alcohol use. When screening is concerning, patients are provided with education and the specific recommendation to discuss the concerning health issue and treatment options with their primary care provider. SOLO
== END 2024-10-28 12:55 | disposition home or self-care (01) ==
LOC: PM 12:55
PROVIDERS: PCP Internal Medicine; Visit Provider Anesthesiology Pain Medicine
DX: M54.6 Pain in thoracic spine (principal); G58.0 Intercostal neuropathy
CPT/HCPCS: G0463

== ENCOUNTER 2025-05-21 11:27 | Outpatient (OUT) | payer MEDICARE, OTHER, SELFPAY ==
--- OUTSIDE RECORDS SUMMARY | 2025-05-21 11:29 | XMS_ITS | Encounter Summary ---
Author Organization [facility] Address [address], [address] [place] [address] Care Team Providers Care Morning Show Producer Name Role Phone Kamaljit Wheeler DO Primary Care Provider [phone] Reason for Visit * Reason Comments Medication Refill Encounter Details Date Type Department Care Team (Late st Contact Info) Description 12/14/2019 Refill [facility] [address], [address] [place] [address] Elian Choi MD Medication Refill Social History Tobacco Use Types Packs/Day Years Used Date Smoking Tobacco: Never Assessed Smokeless Tobacco: Never Comments Unknown Sex and Gender Information Value Date Recorded Sex Assigned at Not on file Legal Sex Female 10:23 AM EDT Gender Identity Not on file Sexual Orientation Not on file documented as of this encounter Plan of Treatment Not on file documented as of this encounter Visit Diagnoses Not on filedocumented in this encounter Care Teams Morning Show Producer Relationship Specialty Start Date End Date Kamaljit Wheeler DO PCP - General Internal Medicine 04/17/19 documented as of this encounter
--- OUTSIDE RECORDS SUMMARY | 2025-05-21 11:29 | XMS_ITS | Clinical Summary ---
Author Organization [facility] Address [address], [address] [place] [address] Care Team Providers Care Marriage And Family Therapist Name Role Phone Kamaljit Wheeler DO Primary Care Provider [phone] Allergies No known active allergies Medications nabumetone (RELAFEN) 750 MG tablet Take 750 mg by mouth 2 times daily Active acetaminophen (TYLENOL) 325 MG tablet Take 650 mg by mouth every 6 hours as needed for Pain Active diclofenac (VOLTAREN) 50 MG EC tablet Take 1 tablet by mouth 2 times daily 60 tablet 5 06/04/2019 Active Family History Medical History Relation Name Comments Arthritis Mother High Blood Pressure Mother Stroke Mother Relation Name Status Comments Mother Social History Tobacco Use Types Packs/Day Years Used Date Smoking Tobacco: Never Assessed Smokeless Tobacco: Never Comments Unknown Sex and Gender Information Value Date Recorded Sex Assigned at Not on file Legal Sex Female 10:23 AM EDT Gender Identity Not on file Sexual Orientation Not on file Last Filed Vital Signs Vital Sign Reading Time Taken Comments Blood Pressure - - Pulse - - Temperature 36.1 C (96.9 F) 07/18/2019 9:27 AM EDT Respiratory Rate - - Oxygen Saturation - - Inhaled Oxygen Concentration - - Weight 59 kg (130 lb) 07/18/2019 9:27 AM EDT Height 167.6 cm (5' 6 ) 07/18/2019 9:27 AM EDT Body Mass Index 20.98 07/18/2019 9:27 AM EDT Plan of Treatment Not on file Insurance MEDICARE Member Subscriber Plan / Payer (Ef fective 2018-Present) Name:Margot Yee Relation to Subscriber:Self Name:Margot Yee Payer ID:Not on file Group ID:Not on file Type:Not on file Address: [address] Care Teams Marriage And Family Therapist Relationship Specialty Start Date End Date Kamaljit Wheeler DO PCP - General Internal Medicine 04/17/19
--- OUTSIDE RECORDS SUMMARY | 2025-05-21 11:29 | XMS_ITS | Clinical Summary ---
Author Organization [facility] Address [address] [place] [address] Care Team Providers Care Rotary Envelope Machine Operator Name Role Phone Kamaljit Wheeler DO Primary Care Provider [phone] Allergies No known active allergies Medications chlorhexidine (Peridex) 0.12 % solution SWISH FOR 1 MINUTE AND EXPECTORATE TWICE A DAY FOR 12 DAYS - START ON SUNDAY MORNING 3 Active escitalopram (Lexapro) 20 MG tablet take 1 tablet by mouth every evening at bedtime 3 Active ibuprofen 800 MG tablet Take 800 mg by mouth every 8 (eight) hours if needed. 3 Active Active Problems Problem Noted Date Diagnosed Date PCO (posterior capsular opacification), right Social History Tobacco Use Types Packs/Day Years Used Date Smoking Tobacco: Never Tobacco Cessation:Counseling Given: Not Answered Comments Unknown Sex and Gender Information Value Date Recorded Sex Assigned at Not on file Legal Sex Female 9:00 AM EDT Gender Identity Not on file Sexual Orientation Not on file Plan of Treatment Not on file Insurance [employer] Care Teams Rotary Envelope Machine Operator Relationship Specialty Start Date End Date Kamaljit Wheeler DO PCP - General Internal Medicine 04/12/23
--- OUTSIDE RECORDS SUMMARY | 2025-05-21 11:29 | XMS_ITS | Encounter Summary ---
Author Organization [facility] Address [address], [address] [place] [address] Care Team Providers Care Curriculum Director Name Role Phone Kamaljit Wheeler DO Primary Care Provider [phone] Reason for Visit * Reason Comments Medication Refill Encounter Details Date Type Department Care Team (Late st Contact Info) Description 06/02/2019 Refill [facility] [address], [address] [place] [address] Elian Choi MD Medication Refill Social History [...] on filedocumented in this encounter Care Teams Curriculum Director Relationship Specialty Start Date End Date Kamaljit Wheeler DO PCP - General Internal Medicine 04/17/19 documented as of this encounter
--- NOTE | 2025-05-21 11:52 | PM.CN ---
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 she continues to engage in HEP/stretching, utilzes heat, ice, tylenol, nsaids with benefit. utilizing flexeril 5-10mg HS PRN pain/spasms. pain has been well controlled since last visit. 0/10 increasing to 2-3/10 at times. cc:: CC: Delmis Singer NP Meds Home Medications and Allergies Home Medications ?Medication ?Instructions ?Recorded ?Confirmed ?Type escitalopram oxalate 10 mg tablet 10 mg PO DAILY 07/11/23 07/11/23 History (Lexapro) glucosamine HRo-O0-Fhvryfevo 1 tab PO DAILY 07/11/23 07/11/23 History ba 1,500 mg-400 unit-100 mg tablet (Osteo Bi-Flex (5-Loxin)) hydrochlorothiazide 25 mg tablet 25 mg PO DAILY 07/11/23 07/11/23 History magnesium citrate 100 mg capsule 400 mg PO DAILY 07/11/23 07/11/23 History naproxen sodium 220 mg capsule 220 mg PO BID PRN pain 07/11/23 07/11/23 History (Aleve) vitamin B complex 1 tab PO DAILY 07/11/23 07/11/23 History cyclobenzaprine 10 mg tablet See Rx Instructions .Route 10/28/24 Rx .COMPLEX PRN muscle spasm #60 tabs Allergies Allergy/AdvReac Type Severity Reaction Status Date / Time zonisamide (From [facility]) Allergy Unknown Verified 07/11/23 08:35 Exam Constitutional Documenting provider has reviewed patient's vital signs: yes Common normals: no apparent distress, oriented x3, healthy appearing, alert and well nourished General appearance: cooperative HENMT Common normals: normocephalic, hearing grossly normal bilaterally and moist oral mucous membranes Head and scalp: normocephalic Eye Common normals: PERRL Pupil: PERRL Neck & C-Spine Common normals: full ROM General: normal visual inspection Chest Common normals: inspection of chest normal Respiratory Common normals: normal respiratory effort, no retractions and no use of accessory muscles Back & Pelvis Thoracic spine/upper back: thoracic ROM normal and paraspinal muscle tenderness Thoracic paraspinal muscle tenderness: right; ROM not limited, no pain with ROM, no thoracic spinal tenderness and no paraspinal muscle spasm Other: tenderness as noted below Back image (female):  1. 2. Neuro Common normals: oriented x3 Sensorium/orientation: alert Psych Common normals: mental status grossly normal, thought process normal, cooperative, affect normal, speech normal and activity/motor behavior normal Speech: normal speech Thought process: normal thought process Results Additional Findings Additional findings: If on a controlled substance or opioids, I have checked an [place] report on this patient and there are no aberrancies noted in the prescribing history.??If on a controlled substance or opioid a drug screen was completed and reviewed within the last year, and if there has not been a drug screen completed we ordered one today to monitor higher risk, state monitored pain medication use. As part of providing excellent, safe, comprehensive care, the following was completed at our patient's visit: 1. A medication reconciliation and review to ensure accurate knowledge of current/active medications, including asking our patients to inform us about any [id number]-[id number] medications or herbal remedies/nutritional supplements/alternative remedies. 2. A review to specifically ensure our patients have had annual screening for screening for depression, screening for tobacco use, and screening for unhealthy alcohol use. For concerning screenings had a discussion with the patient, provided patient education, and recommended follow-up with primary care provider when appropriate. If patient noted with a risk of falling, they received education on strength, gait, and balance training to prevent future risk of falling. Portions of this note may have been carried over from the previous visit and updated as appropriate. Please note this office utilizes paper charting in addition to the electronic medical record. A list of current medications, vitals, and PMH is available there as the clinical staff outside of myself do not have access to [facility] charting during the clinic day operations. As part of providing quality comprehensive care the current medications, vitals, and PMH were reviewed in the paper chart. Assessment and Plan Assessment and Plan (1) Intercostal neuritis: (2) Myalgia, other site: (3) Thoracic back pain: Plan continue hep as tolerated, continue heat/ice prn, continue current medication regimen. f/u 6 months, sooner if needed
== END 2025-05-21 11:28 | disposition home or self-care (01) ==
LOC: PM 11:27
PROVIDERS: PCP Internal Medicine; Visit Provider Nurse Practitioner
DX: G58.0 Intercostal neuropathy (principal); M79.18 Myalgia, other site; M54.6 Pain in thoracic spine
CPT/HCPCS: G0463

== ENCOUNTER 2025-06-24 10:54 | Outpatient (OUT) | payer MEDICARE, OTHER, SELFPAY ==
--- NOTE | 2025-06-24 10:57 | MM_ITS ---
Patient Name: QUENTIN DEJESUS MR#: [id number] : 1950 Exam Date: 06/24/2025 Ordering Doctor: DR KARMEN CHANEY D.O. RADIOLOGY REPORT PROCEDURE: MM TOMOSYNTHESIS SCREENING BI COMPARISON: MM TOMOSYNTHESIS SCREENING BI, 01/07/2024. MG MAMM SCREEN 3D JULITA CAD, 12/21/2022. MG MAMM SCREEN 3D JULITA CAD, 09/16/2021. MG MAMM JULITA SCRN W CAD DIG, 12/07/2010. INDICATIONS: screening Calculator Name NCI Breast Cancer Risk Assessment Tool 5 Year Breast Cancer Risk 2.00% Lifetime Breast Cancer Risk 4.00% Personal Breast Cancer No Personal Ovarian Cancer No Treatments None Family Cancers Grandmother-paternal with lung cancer at age ~80. LOCATION: [facility] BREAST COMPOSITION: The breasts are extremely dense, which lowers the sensitivity of mammography. FINDINGS: RIGHT BREAST: No significant suspicious finding. Benign-appearing calcifications are present. Benign-appearing lymph nodes are noted along the chest wall. LEFT BREAST: No significant suspicious finding. Benign-appearing calcifications are present. Benign-appearing lymph nodes are noted along the chest wall. DIAGNOSTIC CATEGORY 2--BENIGN FINDING. NO CHANGE FROM COMPARISON. RECOMMENDATIONS: ROUTINE MAMMOGRAM AND CLINICAL EVALUATION IN 12 MONTHS. Dictated by: Sage Donis MD on 06/24/2025 at 15:12 Approved by: Sage Donis MD on 06/24/2025 at 15:28
--- OUTSIDE RECORDS SUMMARY | 2025-06-24 13:49 | XMS_ITS | CCD ---
Author Organization [facility] Care Team Providers Care Breaker Mechanic Name Role Phone VIKTORIA ., DR ARUN [...] ., NARLOBO Attending Jesenia vailable LAKSHMIPATHY ., NARREXATH Consulting [...] Unavailable BALL, DR PERAZA Primary Care Unavailable LIAM, DR PERAZA Consulting Unavailable LIAM, DR PERAZA Primary Care Unavailable LIAM, DR PERAZA Admitting Unavailable LIAM, DR PERAZA Attending Unavailable WEST, DR MARNI Gomez Consulting Unavailable Kamaljit Chaney Unavailable Kamaljit Chaney DO Primary Care Provider [phone] Kamaljit Chaney DO Attending Provider Allergies Allergy Classification Reported Allergen(s) Allergy Type Date of Onset Reaction(s) Facility (1 source) zonisamide Drug Allergy 3 [facility] Repository (5 sources) Diclofenac Drug Allergy Unknown [facility] Other (3 sources) patient allergy list reviewed by nurse or physicia Propensity to adverse reactions 9 Comment:Done [facility] Other (3 sources) Allergies Reconciled Propensity to adverse reactions Unknown [facility] Other Medications Current Medications Medication Drug Class(es) Dates Sig (Normalized) Sig (Original) cyclobenzaprine hydrochloride 10 mg oral tablet (3 sources) Muscle Relaxant Start: 05-12-2024 take 1 tablet by mouth once daily at bedtime Cyclobenzaprine 10 mg tablet Active 10 MG PO Daily at bedtime May 12, 2024 12:00am Complies with drug therapy escitalopram 20 mg oral tablet (13 sources) Serotonin Reuptake Inhibitor Start: 03-10-2024 End: 03-12-2025 take 1 tablet by mouth once daily in the evening Escitalopram Oxalate 20 mg tablet Active 0 .ROUTE .COMPLEX March 12, 2025 7:35am TAKE ONE TABLET BY MOUTH EVERY EVENING Complies with drug therapy Start: 03-10-2024 End: 03-10-2024 take 1 tablet by mouth once daily at bedtime Escitalopram Oxalate 20 mg tablet Discontinued 20 MG PO Daily at bedtime March 10, 2024 12:00am March 10, 2024 12:52pm take 1 tablet by reji th once daily at bedtime Escitalopram Oxalate 20 MG take 1 tablet by mouth every evening at bedtime for 90 Active hydroCHLOROthiazide 25 mg oral tablet (9 sources) Thiazide Diuretic Start: 05-07-2024 End: 09-07-2024 take 1 tablet by mouth once daily Hydrochlorothiazide 25 mg tablet Active 25 MG PO Daily 90 September 07, 2024 1:24pm Complies with drug therapy take 1 tablet by reji th every twenty-four hours hydroCHLOROthiazide 25 MG 1 tablet in th e morning Orally Once a day for 90 days Active Completed/Discontinued Medications Medication Drug Class(es) Dates Sig (Normalized) Sig (Original) zolpidem tartrate 10 mg oral tablet (8 sources) gamma-Aminobutyri c Acid-ergic Agonist Start: 05-07-2024 End: 05-25-2025 take 1 tablet by mouth once daily at bedtime as needed Zolpidem 10 mg tablet Discontinued 10 MG PO Daily at bedtime as needed May 07, 2024 12:00am May 25, 2025 11:24am Start: 05-01-2023 take 1 tablet by reji [...] Episodic Other bone disease and musculoskeletal deformities (4 sources) Osteopenia; Translations: [Other specified disorders of bone density and structure, unspecified site] 05-12-2024 Episodic Comment on above: DEXA: 12/2023, Other circulatory disease (1 source) Elevated blood-pressure [...] conditions (not mental disorders or infectious disease) (13 sources) Encounter for screening mammogram for malignant [...] Spondylosis; intervertebral disc disorders; other back problems (17 sources) Spondylosis without myelopathy or radiculopathy, thoracic [...] : DR KAMALJIT CHANEY D.O. Admission #: [id number] Family : Order #: [id number] CLICK HERE TO VIEW EXAM RADIOLOGY REPORT [...] lung cancer at age 78. LOCATION: [facility] BREAST COMPOSITION: Extremely dense, which [...] MD on 12/22/2022 at 12:36 Normal [facility] Vital Signs Date Time Vital Sign Value Performing Clinician Facility 05-25-2025 10:50-0400 Body height 167.64 cm Kamaljit Ball DO Work Phone: [facility] 05-25-2025 10:50-0400 Body mass index (BMI) [Ratio] 24.3 kg/m2 Kamaljit Ball DO Work Phone: [facility] 05-25-2025 10:50-0400 Body weight 68.26 kg Kamaljit Ball DO Work Phone: [facility] 05-25-2025 10:50-0400 Diastolic blood pressure 69 mm[Hg] Kamaljit Ball DO Work Phone: [facility] 05-25-2025 10:50-0400 Heart rate 83 /min Kamaljit Ball DO Work Phone: [facility] 05-25-2025 10:50-0400 Respiratory rate 12 /min Kamaljit Ball DO Work Phone: [facility] 05-25-2025 10:50-0400 Systolic blood pressure 115 mm[Hg] Kamaljit Ball DO Work Phone: [facility] 05-12-2024 09:51-0400 Body height 167.64 cm [facility] 05-12-2024 09:51-0400 Body mass index (BMI) [Ratio] 23.2 kg/m2 [facility] 05-12-2024 09:51-0400 Body weight 65.31 kg [facility] 05-12-2024 09:51-0400 Diastolic blood pressure 72 mm[Hg] [facility] 05-12-2024 09:51-0400 Heart rate 71 /min [facility] 05-12-2024 09:51-0400 Respiratory rate 12 /min [facility] 05-12-2024 09:51-0400 Systolic blood pressure 147 mm[Hg] [facility] 10-25-2023 08:30-0500 Body height 167.64 cm Kamaljit Ball Other [facility] [employer] Other 10-25-2023 08:30-0500 Body mass index (BMI) [Ratio] 22.56 kg/m2 Kamaljit Ball Other [facility] [employer] Other 10-25-2023 08:30-0500 Body weight 63.41 kg Kamaljit Ball Other [facility] [employer] Other 10-25-2023 08:30-0500 Diastolic blood pressure 80 mm[Hg] Kamaljit Ball Other [facility] [employer] Other 10-25-2023 08:30-0500 Respiratory rate 12 /min Kamaljit Ball Other [facility] [employer] Other 10-25-2023 08:30-0500 Systolic blood pressure 149 mm[Hg] Kamaljit Ball Other [facility] Other 05-01-2023 09:30-0400 Body height 167.64 cm Kamaljit Ball Other [facility] [employer] Other 05-01-2023 09:30-0400 Body mass index (BMI) [Ratio] 22.53 kg/m2 Kamaljit Chaney Other [facility] Other 05-01-2023 09:30-0400 Body weight 63.32 kg Kamaljit Chaney Other [facility] Other 05-01-2023 09:30-0400 Diastolic blood pressure 72 mm[Hg] Kamaljit Chaney Other [facility] Other 05-01-2023 09:30-0400 Respiratory rate 12 /min Kamaljit Chaney Other [facility] Other 05-01-2023 09:30-0400 Systolic blood pressure 135 mm[Hg] Kamaljit Chaney Other [facility] Other Encounters Encounter Date Encounter Type Care Provider Facility Start: 05-25-2025 End: 05-25-2025 ambulatory Kamaljit Chaney DO Work Phone: [facility] Work Phone: Start: 05-25-2025 End: 05-25-2025 Patient encounter procedure Kamaljit Chaney DO -[facility] Work Phone: Start: 07-25-2024 End: 07-25-2024 ambulatory [facility] Work Phone: Start: 07-25-2024 End: 07-25-2024 Patient encounter procedure [facility] Work Phone: Start: 05-12-2024 End: 05-12-2024 ambulatory [facility] Work Phone: Start: 05-12-2024 End: 05-12-2024 Patient encounter procedure [facility] Work Phone: Start: 03-10-2024 Non-patient / Non-visit [facility] Work Phone: Start: 10-25-2023 End: 10-25-2023 ambulatory Kamaljit Chaney Other [facility] Other Start: 10-25-2023 Office outpatient visit 15 minutes Kamaljit Liam [facility] Start: 08-17-2023 End: 08-17-2023 ambulatory Kamaljit Chaney Other [facility] Other Start: 08-17-2023 Telephone encounter Kamaljit Chaney MARAH [facility] Start: 07-20-2023 End: 07-20-2023 ambulatory Kamaljit Chaney Other [facility] Other Start: 07-20-2023 Nursing evaluation o f patient and report Kamaljit Chaney [facility] Start: 05-18-2023 End: 05-18-2023 ambulatory Kamaljit Chaney Other [facility] Other Start: 05-18-2023 Telephone encounter Kamaljit Chaney MARAH Liam [facility] Start: 05-01-2023 End: 05-01-2023 ambulatory Kamaljit Chaney Other [facility] Other Start: 05-01-2023 Patient encounter procedure Kamaljit Chaney [facility] Start: 02-22-2023 End: 02-23-[address] KAMALJIT CHANEY Facility:[facility] Start: 01-18-2023 End: 01-19-2023 ambulatory YOJANA FELIZMIASIA . Facility:[facility] Start: 12-21-2022 End: 12-22-[address] KAMALJIT CHANEY Facility:[facility] Start: 10-19-2022 End: [address] ARUN BLUM . Facility:[facility] Start: 07-13-2022 End: 07-14-2022 ambulatory HILARY VIDALES . Facility:[facility] Start: 05-31-2022 End: 06-01-[address] ARUN BLUM . Facility:[facility] Start: 03-09-2022 End: 03-10-[address] ARUN BLUM . Facility:[facility] Start: 07-08-2021 Adult health examination Kamaljit Chaney Other [facility] Other Procedures Date Procedure Procedure Detail Performing Clinician Start: 12-09-2018 Screening for malign ant neoplasm of colon Kamaljit Chaney Other Start: 02-10-2015 Screening mammography B julius Chaney Other Depression screening Rosalino Chaney Other Screening for malign ant neoplasm of breast Kamaljit Chaney Other Plan of Treatment Date Care Activity Detail Author MG Breast - bilateral Screening [facility] Immunizations Immunization Date Immunization Notes Care Provider Fa dionte 07-25-2024 influenza, high dose seasonal, preservative-free [facility] 07-20-2023 influenza virus vaccine, unspecified formulation [facility] 07-20-2023 influenza, high dose seasonal, preservative-free Kamaljit Chaney Other [facility] [employer] Other 05-14-2023 zoster vaccine recombinant Kamaljit Chaney Other [facility] 10-25-2022 COVID-19 Pfizer (bivalent) Kamaljit Chaney Other [facility] 07-12-2022 influenza virus vaccine, split virus (incl. purified surface antigen) Kamaljit Chaney Other [facility] [employer] Other 07-12-2022 influenza virus vaccine, unspecified formulation [facility] 07-12-2022 influenza, high dose seasonal, preservative-free Kamaljit Chaney Other [facility] [employer] Other 02-06-2022 COVID-19 Pfizer Kamaljit phelps Other [facility] 07-20-2021 COVID-19 Vaccine Pfi zer - Documentation Purposes Only Kamaljit Chaney Other [facility] 07-08-2021 influenza virus vaccine, split virus (incl. purified surface antigen) Kamaljit Chaney Other [facility] [employer] Other 07-08-2021 influenza virus vaccine, unspecified formulation [facility] 12-14-2020 COVID-19 Vaccine Pfi zer - Documentation Purposes Only Kamaljit Liam Other [facility] 11-23-2020 COVID-19 Vaccine Pfi zer - Documentation Purposes Only Kamaljit Liam Other [facility] 07-09-2020 influenza virus vaccine, split virus (incl. purified surface antigen) Kamaljit Liam Other [facility] Other 07-09-2020 influenza virus vaccine, unspecified formulation [facility] 08-05-2019 influenza virus vaccine, split virus (incl. purified surface antigen) Kamaljit Laim Other [facility] Other 08-05-2019 influenza virus vaccine, unspecified formulation [facility] 08-06-2018 influenza virus vaccine, split virus (incl. purified surface antigen) Kamaljit Liam Other [facility] Other 08-06-2018 influenza virus vaccine, unspecified formulation [facility] 08-01-2017 influenza virus vaccine, split virus (incl. purified surface antigen) Kamaljit Liam Other [facility] [employer] Other 08-01-2017 influenza virus vaccine, unspecified formulation [facility] 09-11-2016 influenza virus vaccine, split virus (incl. purified surface antigen) Kamaljit Liam Other [facility] Other 09-11-2016 influenza virus vaccine, unspecified formulation [facility] 08-25-2016 pneumococcal conjuga te vaccine, 13 valent Kamaljit Liam Other [facility] 08-25-2016 pneumococcal Conjuga te, unspecified formulation; Translations: [Need for prophylactic vaccination against Streptococcus pneumoniae (pneumococcus)] Kamaljit Chaney Other [facility] Other 08-19-2015 tetanus and diphther ia toxoids, adsorbed, preservative free, for adult use (5 Lf of tetanus toxoid and 2 Lf of diphtheria toxoid) Kamaljit Chaney Other [facility] 02-19-2015 pneumococcal polysaccharide vaccine, 23 valent Kamaljit Chaney Other [facility] 07-30-2014 tetanus and diphther ia toxoids, adsorbed, preservative free, for adult use (5 Lf of tetanus toxoid and 2 Lf of diphtheria toxoid) Kamaljit Chaney Other [facility] 08-21-2013 tetanus and diphther ia toxoids, adsorbed, preservative free, for adult use (5 Lf of tetanus toxoid and 2 Lf of diphtheria toxoid) Kamaljit Chaney Other [facility] Payers Date Payer Category Payer Medicare [id number] 1961 Unknown [id number] 1950 Unknown [id number] 2.16.84 [id number] 1950 Unknown [id number] 2.16.84 [id number] 1950 Unknown [id number] 2.16.84 [id number] 1950 Unknown [id number] 2.16.84 [id number] 1948 Unknown [id number] 2.16.84 [id number] 1950 Unknown [id number] 2.16.84 [id number] 1950 Unknown [id number] 2.16.84 [id number] Social History Date Type Detail Facility Sex Assigned At [facility] Other Start: 1950 Sex Assigned At Female F [facility] Work Phone: Sex Female (finding) [facility] Clinical Notes 03-09-2022 to 10-25-2023 Note Date [...] on treatment of rhinitis and GERD. CXR [facility] Other 07-11-2023 Evaluation note* Encounter Date Diagnosis [...] use, the patient reduces the risk for [place], CVA, HTN, cardiac dysrhythmias and sudden cardiac [...] - Z12.11) Due for Cologuard, order sent [facility] Other 03-30-2023 NoteCONSULTATION PROCEDURE DATE: 01/18/2023 PROCEDURE: [...] symptoms during the immediate post procedural period.[facility] [id number] NoteCONSULTATION CONSULTATION DATE: 01/18/2023 TO: Kamaljit Chaney [...] agrees to proceed with the outlined plan.[facility] [id number] NoteCONSULTATION CONSULTATION DATE: 10/19/2022 HISTORY OF PRESENT [...] otherwise indicated. Patient is in agreement. [facility] [id number] NoteCONSULTATION CONSULTATION DATE: 07/13/2022 HISTORY OF PRESENT [...] in three months' time unless otherwise indicated.[facility] [id number] Note CONSULTATION PROCEDURE DATE: 07/13/2022 PREOPERATIVE DIAGNOSIS: [...] will be followed up in the office.[facility] [id number] NoteCONSULTATION CONSULTATION DATE: 05/31/2022 This is a [...] in two months' time unless otherwise indicated.[facility] [id number] NoteCONSULTATION PROCEDURE NOTE: 05/31/2022 PRE AND POSTOPERATIVE [...] will be followed up in the office.[facility] [id number] NoteThe [place], [place] NAME: QUENTIN YEE DATE OF : MEDICAL REC#: [id number] GENERAL ACCOUNTANT: [address], TRANSADMIT DATE: 03/09/2022 10:47:00 TYPEWRITER MECHANIC DATE: 03/10/2022 16:00 DICTATING PHYSICIAN: HILARY VIDALES [...] indicated. Electronically Authenticated and Edited by: Hilary Vidalse CNP on 03/13/2022 02:59 PM EDT IFC Signed and Approved by: HILARY VIDALES . 03/13/2022 14:59:00[facility]05-19-2022 NoteCONSULTATION CONSULTATION DATE: 03/09/2022 PREOPERATIVE DIAGNOSIS: [...] will be followed up in the clinic. [facility] Signed and Approved by: HILARY VIDALES . 03/23/2022 16:01:00[facility]Evaluation noteNo InformationNortEvangel[facility] [employer] Other Evaluation note* Diagnosis Onset Date Resolution Status Cervical spondylosis acute SHITAL (obstructive sleep apnea) acute Osteopenia acute Medicare annual wellness visit, subsequent noneactive Screening mammogram for breast cancer noneactive [facility] Work Phone: Evaluation note* Diagnosis Onset Date Resolution Status Admit Date Cervical spondylosis acute Augu 2024 10:40am SHITAL (obstructive sleep apnea) acute May 25, 2025 10:40am Osteopenia acute May 25 10:40am Medicare annual wellness visit, subsequent noneactive May 25 10:40am Screening mammogram for breast cancer noneactive May 25, 2025 10:40am [facility] Work Phone: History general Narrative - Reported* Type Description Date Medical History Obstructive sleep apnea Medical History Primary insomnia Medical History ZULEYKA (generalized anxiety disorde r) Medical History Cervical spondylosis with radicu lopathy Medical History Chronic venous insufficiency Medical History Seasonal allergic rhinitis due t o pollen Surgical History gum regrafting 03/2023 Hospitalization History see surgical history [facility] [employer] Other Reason for referral (narrative)No reason for referral information availableChillicothe Hospital Work Phone: Summary Purpose Family History Relationship Condition Age [...] Screening mammogram for breast cancer Chief Complaint Admit Date wellness May 25, 2025 10: 40am Reason for Visit Admit Date Cervical spondylosis May 25, 2025 10 :40am SHITAL (obstructive sleep apnea) May 10:40am Osteopenia May 25, 2025 10: 40am Medicare annual wellness visit, subseque nt May 25, 2025 10:40am Screening mammogram for breast cancer Au 2024 10:40am Additional Source Comments INFORMATION SOURCE (unrecogn ized section and content) DATE CREATED AUTHOR 03/01/2023 [facility] REASON FOR VISIT (unrecogniz ed section [...] Chaney DO Primary Care Provider Active Start: May 25, 2025 End: May 25, 2025 Kamaljit Chaney DO Attending Provider Active Sta rt: May 25, 2025 End: May 25, 2025 Goals (unrecognized section and content) Goals may [...] BE BASED ON THE PRIMARY CLINICAL RECORDS. [facility]. provides no warranty or guarantee of the accuracy or completeness of information in this document.
== END 2025-06-24 10:55 | disposition home or self-care (01) ==
LOC: MAMMO 10:54
PROVIDERS: PCP Internal Medicine; Visit Provider Internal Medicine
DX: Z12.31 Encounter for screening mammogram for malignant neoplasm of breast (principal); Z80.1 Family history of malignant neoplasm of trachea, bronchus and lung
CPT/HCPCS: 77063; 77067